=== PATIENT | female | born 1950 | race Caucasian/White ===

== ENCOUNTER → 2018-01-29 | Outpatient (CLI) | payer MEDICARE ==
[2017-10-09 11:00] VITALS: BP 104/56
[~2018-01-29] MED LIST: ACET325T9 PO; ALBU2.5V5 NEB; ALEN35TA6 PO; ALEN70TA5 PO; ALPR0.254 PO; AMOX1TAB10 PO; ASPI-630 PO; ASPI325T11 PO; ASPI325T8 PO; ATEN-57 PO; ATEN25TA PO; ATEN50TA PO; ATOR10TA PO; ATOR10TA60 PO; BUDE0.5A IH; CALC1TAB67 PO; CHLO1CAP PO; DILT180C29 PO; DIPH25CA58 PO; DOCU-109 PO; ENOX40DI SQ; ERGO500027 PO; FAMO1TAB3 PO; FERR325T72 PO; GUAI600T47 PO; Hydrocodone/Acetaminophen PO; IPRA0.2S5 IH; LACT1CAP19 PO; LEVO500T59 PO; LOPE2CAP PO; MAGN2400 PO; MELO15TA23 PO; METH-37 PO; MULT-638 PO; NICO1PAT21 TP; NYST100054 SWSW; OXYC-327 PO; PARO20TA3 PO; POTA20TA4 PO; PRED50TA PO; PROAIR HFA8.5 GM INH; PROC25SU21 RC; Pantoprazole PO; RIVA20TA2 PO; SENN-79 PO; SUCR1ORA5 PO; ZOLP5TAB5 PO; medrol dose pak
--- NOTE | 2018-01-29 11:38 | RAD ---
MRI Cervical Spine Without Contrast History: Previous surgery, chronic neck pain, left arm and shoulder pain Technique: Multiplanar, multi sequential noncontrast MR imaging was performed of the cervical spine. Comparison: March 29, 2017 Findings: There is motion degradation. Cervical vertebral body stature is unchanged. There is straightening of the cervical spine. There is negligible posterior subluxation C5 relative to C6. There is again moderate to severe degenerative disc disease at C4-C5, to lesser degree at C5-C6 minimally at C6-7. Cervical cord caliber is within normal limits without significant focal signal abnormality. There is no new significant abnormality of the cervical medullary junction. There is encephalomalacia with cortical involvement of the left occipital lobe as seen previously. C2-C3: Neural foramina and spinal canal are adequate. There is mild right facet degenerative change. C3-C4: There has been posterior decompression. There is facet degenerative change greater on the right. There is again minimal posterior bulge greater in the left lateral recess. Central canal is adequate about 10 to 11 mm. There is uncovertebral degenerative change. There is probable moderate to severe neural foramina compromise bilaterally although poorly characterized due to motion. C4-C5: There is minimal disc osteophyte complex and bulge. There has been posterior decompression. There is right greater than left facet degenerative change. Spinal canal is adequate. Left neural foramen is adequate, fairly severe narrowing of the right neural foramen due to facet and uncovertebral degenerative change. C5-C6: There has been posterior decompression. There is shallow posterior bulge/protrusion eccentric to left lateral recess as seen previously, central canal adequate about 12 mm. There is mild indentation upon the ventral thecal sac in the left lateral recess unchanged. There is uncovertebral degenerative change. There is again fairly severe narrowing of the left neural foramen, probable moderate to severe narrowing of the right neural foramen. C6-C7: There has been posterior decompression. There is again minimal posterior bulge. Spinal canal is overall adequate. There is again fairly severe narrowing of the left neural foramen in part from uncovertebral degenerative change, difficult to exclude component of bulge at the anterior margin. Right neural foramen is adequate. C7-T1: There has been posterior decompression, spinal canal and neural foramina adequate. Impression: 1. There has been multilevel posterior decompression C3-4 to C7-T1, cervical spinal canal overall adequate, mild indentation upon the ventral thecal sac as stated. 2. There is multilevel neural foramina compromise, more significant narrowing on the left at C5-6 and C6-7, on the right at C4-C5, and bilaterally at C3-C4. Facet and uncovertebral degenerative change contributes to neural foramina compromise. 3. There is degenerative disc disease greatest at C4-C5. 4. There is again encephalomalacia with cortical involvement of the left occipital lobe. Electronically signed by: Noé Geiger MD (01/29/2018 11:35 AM) [facility]
== END | disposition home or self-care (01) ==
LOC: MRI 10:15
PROVIDERS: ATTEND Family Medicine
DX: M50.321 Other cervical disc degeneration at C4-C5 level (principal); M48.02 Spinal stenosis, cervical region; M25.78 Osteophyte, vertebrae; G93.89 Other specified disorders of brain
CPT/HCPCS: 72141

== ENCOUNTER → 2018-07-24 | Outpatient (CLI) | payer MEDICARE ==
[2017-10-09 11:00] VITALS: BP 104/56
[~2018-07-24] MED LIST changes: +ALBU2.5V8 INH; -ALEN70TA5 PO; +ALEN70TA6 PO; -OXYC-327 PO; +OXYC1TAB19 PO; -PROAIR HFA8.5 GM INH; +REGADENOSON 0.4 MG/5 ML DISP.SYRIN. IV ONE; -SENN-79 PO; +SENN-80 PO
--- NOTE | 2018-07-24 09:29 | CARD ---
MR#: [id number] Date of Study: 07/24/2018 Ordering Physician: ANNA TAVERA, Referring Physician: ANNA TAVERA Tech: Rufina Weber OSVALDO APPROVED REPORT EXAM: Two-dimensional and M-mode echocardiogram with Doppler and color Doppler. Other Information Quality : Technically LimitedHR: 62bpm Rhythm : NSRTechnically limited study due to history of smoking. INDICATION Atrial Fibrillation 2D DIMENSIONS RVDd2.2 (2.9-3.5cm)Left Atrium(2D)2.4 (1.6-4.0cm) IVSd0.8 (0.7-1.1cm)Aortic Root(2D)3.0 (2.0-3.7cm) LVDd4.6 (3.9-5.9cm)LVOT Diameter1.8 (1.8-2.4cm) PWd0.8 (0.7-1.1cm)LVDs3.2 (2.5-4.0cm) FS (%) 31.2 %SV58.2 ml LVEF(%)59.1 (>50%) Aortic Valve AoV Peak [place].133.2cm/sAoV VTI28.4cm AO Peak GR.7.1mmHgLVOT Peak [place].107.5cm/s AO Mean GR.3mmHgAVA (VMAX)2.05cm2 MAXWELL (VTI)2.03ny7ZO P 1/2 Sfad043jf Mitral Valve MV E Uodjwzvu372.4cm/sMV E Peak Gr.5mmHg MV DECEL DDMR341ujSZ A Lxnhewbp03.2cm/s MV E Mean Gr.2mmHgE/A Ratio1.2 MV A Prphnrbm952hz Pulmonary Valve PV Peak Jctlaxsb78.6cm/s Tricuspid Valve TR P. Zhtlysre577hu/sRAP GJJBIXNS0uhTg TR Peak Gr.04hqIpZUUR68eoPa LEFT VENTRICLE The left ventricle is normal size. There is normal left ventricular wall thickness. The left ventricu lar systolic function is normal. The Ejection Fraction is 55-60%. There is normal LV segmental wall m otion. Transmitral Doppler flow pattern is Grade II-pseudonormal filling dynamics. RIGHT VENTRICLE The right ventricle is normal size. There is normal right ventricular wall thickness. The right ventr icular systolic function is normal. ATRIA The left atrium size is normal. The right atrium size is normal. The interatrial septum is intact wit h no evidence for an atrial septal defect or patent foramen ovale as noted on 2-D or Doppler imaging. AORTIC VALVE The aortic valve is thickened but opens well. The aortic valve is trileaflet. Doppler and Color Flow revealed mild aortic regurgitation. There is no significant aortic valvular stenosis. MITRAL VALVE The mitral valve is normal in structure and function. There is no evidence of mitral valve prolapse. There is no mitral valve stenosis. Doppler and Color-flow revealed mild mitral regurgitation. TRICUSPID VALVE The tricuspid valve is normal in structure and function. Doppler and Color Flow revealed trace tricus pid regurgitation. There is mild pulmonary hypertension. The PA pressure was estimated at 39 mmHg. Th ere is no tricuspid valve prolapse or vegetation. There is no tricuspid valve stenosis. PULMONIC VALVE The pulmonic valve is not well visualized. GREAT VESSELS The aortic root is normal in size. The ascending aorta is normal in size. The IVC is normal in size a nd collapses >50% with inspiration. PERICARDIAL EFFUSION There is no evidence of significant pericardial effusion. Critical Notification Critical Value: No <Conclusion> The left ventricular systolic function is normal. The Ejection Fraction is 55-60%. There is normal LV segmental wall motion. Mild aortic regurgitation. Mild mitral regurgitation. Trace tricuspid regurgitation. The PA pressure was estimated at 39 mmHg. There is no evidence of significant pericardial effusion. Signed by : Anna Tavera, Electronically Approved : 07/24/2018 09:29:33
--- NOTE | 2018-07-24 12:23 | RAD ---
MR#: [id number] Date of Study: 07/24/2018 Ordering Physician: ANNA GARDNER, Referring Physician: BAY CUELLAR Tech: KAVITHA Coyle, ARRT (R) (N) APPROVED REPORT Test Type: Pharmacological Stress Nurse/Tech: Venkata Ponce RN Test Indications: paroxysmal atrail Fibrillation Cardiac History: COPD, CVA Medications: See Electronic Medical Record Medical History: See Electronic Medical Record Resting ECG: SR Resting Heart Rate: 62 bpm Resting Blood Pressure: 124/54mmHg Pretest Chest Pain: None Nurse/Tech Notes Lungs CTA, S1S2 Consent: The procedure was explained to the patient in lay terms. Informed consent was witnessed. Darren eout was entered into [employer]. History and Stress Test performed by venkata Ponce RN Pharm. Details Pharmacologic stress testing was performed using 0.4mg per 5ml of regadenoson given intravenously ove r 7-10 seconds. Stress Symptoms dyspnea POST EXERCISE Reason for Termination: Infusion complete Max HR: 96 bpm Max Blood Pressure: 132/52mmHg Blood Pressure response to exercise: Normal blood pressure response during stress. Heart Rate response to exercise: Normal response Chest Pain: No. Arrhythmia: No. ST Change: No. INTERPRETATION Stress EKG Conclusion: Baseline EKG showed sinus rhythm. No ischemic changes at peak stress. No arr hythmias. Imaging Protocol IMAGE PROTOCOL: Rest Tc-99m/stress Tc-99m 1 day Rest: Stress: Viability: Radiopharm.1231 Img Date 07/24/2018 07/24/2018 Inj-Img Upyt13xig. 60min. Rest Admin Site:IV - Right HandAdministrator:RT Tatiana (R)(N) Stress Admin Site: IV - Right HandAdministrator: RT Tatiana (R)(N) STRESS DATA End Diast. Vol.54.0mlLVEDV index BSA33.0ml End Syst. Vol.10.0mlLVESV index BSA6.0ml Myocardial Mass94.0gEject. Hzfikfmy25.0% Stress Scores Regional WT1.00Summed WT4.00 Regional WM0.00Summed WM0.00 Study quality was good. Left Ventricular size was Normal at Rest and Stress. Lung uptake was . Left Ventricular ejection fraction is 79%. The rest and stress images show normal perfusion, normal contraction and thickening. LV Perf. Quant 17 Seg. SSS2.00 17 Seg. SRS4.00 17 Seg. SDS0.00 Stress Defect Extent (% LAD)0.60Rest Defect Extent (% LAD)3.10Rev. Defect Extent (% LAD)0.00 Stress Defect Extent (% LCX) 0.00Rest Defect Extent (% LCX)0.00Rev. Defect Extent (% LCX)0.00 Stress Defect Extent (% RCA)3.30Rest Defect Extent (% RCA)7.80Rev. Defect Extent (% RCA)0.00 Stress Defect Extent (% HUYEN)2.40Rest Defect Extent (% HUYEN)6.30Rev. Defect Extent (% HUYEN)0.00 Conclusion 1. Regadenoson cardioisotope stress test did not show any evidence of ischemia or infarct. 2. Normal left ventricular systolic function with ejection fraction calculated at 79%. 3. Low risk for cardiac events. Signed by : Anna Gardner, Electronically Approved : 07/24/2018 12:22:46
== END | disposition home or self-care (01) ==
LOC: ECHO 07:49
PROVIDERS: ATTEND Internal Medicine Cardiovascular Disease
DX: I08.0 Rheumatic disorders of both mitral and aortic valves (principal); I48.0 Paroxysmal atrial fibrillation; J44.9 Chronic obstructive pulmonary disease, unspecified; Z86.73 Personal history of transient ischemic attack (TIA), and cerebral infarction without residual deficits
CPT/HCPCS: 78452; 93017; 93306; 96374; A9500; J2785

== ENCOUNTER → 2018-08-28 | Outpatient (CLI) | payer MEDICARE ==
[2017-10-09 11:00] VITALS: BP 104/56
[~2018-08-28] MED LIST changes: -REGADENOSON 0.4 MG/5 ML DISP.SYRIN. IV ONE
--- NOTE | 2018-08-28 17:01 | RAD ---
Pelvis one view. HISTORY: Low back pain without sciatica, M [age] Single view was taken of the pelvis. There is vascular calcification in the left iliac artery and distal aorta. Pelvis is intact without fracture or osseous abnormality. Hips appear unremarkable. IMPRESSION: 1. Negative pelvis. Electronically signed by: Adebayo More MD (08/28/2018 4:59 PM) [facility]
== END | disposition home or self-care (01) ==
LOC: RAD 13:40
PROVIDERS: ATTEND Internal Medicine Rheumatology
DX: I70.0 Atherosclerosis of aorta (principal); I70.8 Atherosclerosis of other arteries
CPT/HCPCS: 72170

== ENCOUNTER 2019-04-15 21:13 | Inpatient (IN) | payer MEDICARE ==
[~2019-04-15] VITALS: Ht 162.6 cm; Wt 67.8 kg
[~2019-04-15 21:13] MED LIST changes: +ALEN35TA11 PO; -ALEN35TA6 PO
[2019-04-15 22:26] LABS: BASO # 0.1 x10^3/uL (0.0-0.2); BASO % 0 % (0-3); EOS % 0 % (0-3); HEMATOCRIT 36.1 % (36.0-47.0); HEMOGLOBIN 12.1 g/dL (12.0-15.5); LYMPH # 1.1 x10^3/uL (1.0-4.8); LYMPH % 8 % (24-48); MEAN CORPUSCULAR HEMOGLOBIN 32 pg (25-35); MEAN CORPUSCULAR HGB CONC 34 g/dL (31-37); MEAN CORPUSCULAR VOLUME 94 fL (79-100); MONO # 1.4 x10^3/uL (0.0-1.1); MONO % 11 % (0-9); NEUT # 10.5 x10^3/uL (1.8-7.7); NEUT % 81 % (31-73); PLATELET COUNT 308 x10^3/uL (140-400); RED BLOOD COUNT 3.85 x10^6/uL (3.50-5.40); RED CELL DISTRIBUTION WIDTH 13.5 % (11.5-14.5)
[2019-04-15 22:35] LABS: CALCIUM 8.9 mg/dL (8.5-10.1); CREATININE 0.8 mg/dL (0.6-1.0); GFR 70.9; POTASSIUM 3.9 mmol/L (3.5-5.1)
[2019-04-15 22:42] LABS: ALBUMIN 3.6 g/dL (3.4-5.0); TOTAL BILIRUBIN 0.6 mg/dL (0.2-1.0); TOTAL PROTEIN 7.3 g/dL (6.4-8.2)
[2019-04-15] MEDS ORDERED: IPRATRPIUM/ALBUTEROL 0.5/2.5MG 3 ML NEBU. NEB ONE (22:45)
[2019-04-15 22:56] LABS: INFLUENZA A PATIENT NEGATIVE (NEGATIVE); INFLUENZA B PATIENT NEGATIVE (NEGATIVE)
--- NOTE | 2019-04-15 22:58 | PHYS DOC ---
Past Medical History Past Medical History: A-Fib, COPD, Other Additional Past Medical Histor: WPW (KAMILLA TAYLOR APRN) Past Surgical History: Appendectomy, Cervical Fusion, Other Additional Past Surgical Histo: left clavicle (KAMILLA TAYLOR APRN) Additional Information: QUIT 09/2017 Alcohol Use: Occasionally Drug Use: None (KAMILLA TAYLOR APRN) Attending Signature I have participated in the care of this patient and I have reviewed and agree with all pertinent clinical information above including history, exam, and recommendations. (TEVIN HEATH MD) Adult General Chief Complaint Chief Complaint: FEVER HPI HPI Patient is a 68 year old female who presents with 3-4 days of dyspnea and dyspnea look exertion, productive cough, nasal congestion and fever. Patient was 90% on room air and was asking for oxygen she came in. Patient was placed on 1 L and she is 96% on room air. 25 respirations. 100 fever. (KAMILLA TAYLOR APRN) Review of Systems Review of Systems Constitutional: fever or chills [] Eyes: Denies change in visual acuity, redness, or eye pain [] HENT: nasal congestion or denies sore throat [] Respiratory: cough or shortness of breath [] All other systems were reviewed and found to be within normal limits, except as documented in this note. (KAMILLA TAYLOR APRN) Current Medications Current Medications Current Medications Medications (Trade) Dose Ordered Sig/Issac Start Time Stop Time Status Last Admin Dose Admin Acetaminophen (Tylenol) 1,000 mg 1X ONCE 04/15/19 23:00 04/15/19 23:01 DC 04/15/19 23:31 1,000 MG Albuterol/ Ipratropium (Duoneb) 3 ml 1X ONCE 04/15/19 22:45 04/15/19 22:46 DC 04/15/19 22:45 3 ML Ceftriaxone Sodium (Rocephin) 1 gm 1X ONCE 04/15/19 23:00 04/15/19 23:01 DC 04/15/19 23:16 1 GM Doxycycline Hyclate 100 mg/ Dextrose 100 ml @ 50 mls/hr 1X ONCE 04/15/19 23:00 04/16/19 00:59 DC 04/15/19 23:17 50 MLS/HR Methylprednisolone Sodium Succinate (SOLU-Medrol 125MG VIAL) 125 mg 1X ONCE 04/15/19 23:00 04/15/19 23:01 DC 04/15/19 23:17 125 MG (TEVIN HEATH MD) Allergies Allergies Allergies Coded Allergies Type Severity Reaction Last Updated Verified Iodine and Iodide Containing Produc Allergy Severe Shortness of Air 10/03/17 Yes iodine Allergy Severe 10/03/17 Yes (TEVIN HEATH MD) Physical Exam Physical Exam Constitutional: Well developed, well nourished, no acute distress, non-toxic appearance. [] HENT: Normocephalic, atraumatic, bilateral external ears normal, oropharynx moist, no oral exudates, nose normal. [] Eyes: PERRLA, EOMI, conjunctiva normal, no discharge. [] Neck: Normal range of motion, no tenderness, supple, no stridor. [] Cardiovascular:Heart rate regular rhythm, no murmur [] Lungs & Thorax: Bilateral breath sounds expiratory wheezing, coarse, diminished to auscultation [] Abdomen: Bowel sounds normal, soft, no tenderness, no masses, no pulsatile masses. [] Skin: Warm, dry, no erythema, no rash. [] Back: No tenderness, no CVA tenderness. [] Extremities: No tenderness, no cyanosis, no clubbing, ROM intact, no edema. [] Neurologic: Alert and oriented X 3, normal motor function, normal sensory function, no focal deficits noted. [] Psychologic: Affect normal, judgement normal, mood normal. [] (KAMILLA TAYLOR APRN) Current Patient Data Vital Signs Vital Signs Date Time Temp Pulse Resp B/P (MAP) Pulse Ox O2 Delivery O2 Flow Rate FiO2 04/15/19 22:50 94 Nasal Cannula 1.0 04/15/19 22:50 86 20 127/60 (82) 04/15/19 21:14 100.0 100.0 (TEVIN HEATH MD) Lab Values Laboratory Tests Test 04/15/19 21:45 04/15/19 22:28 White Blood Count 13.0 x10^3/uL (4.0-11.0) H Red Blood Count 3.85 x10^6/uL (3.50-5.40) Hemoglobin 12.1 g/dL (12.0-15.5) Hematocrit 36.1 % (36.0-47.0) Mean Corpuscular Volume 94 fL (79-100) Mean Corpuscular Hemoglobin 32 pg (25-35) Mean Corpuscular Hemoglobin Concent 34 g/dL (31-37) Red Cell Distribution Width 13.5 % (11.5-14.5) Platelet Count 308 x10^3/uL (140-400) Neutrophils (%) (Auto) 81 % (31-73) H Lymphocytes (%) (Auto) 8 % (24-48) L Monocytes (%) (Auto) 11 % (0-9) H Eosinophils (%) (Auto) 0 % (0-3) Basophils (%) (Auto) 0 % (0-3) Neutrophils # (Auto) 10.5 x10^3/uL (1.8-7.7) H Lymphocytes # (Auto) 1.1 x10^3/uL (1.0-4.8) Monocytes # (Auto) 1.4 x10^3/uL (0.0-1.1) H Eosinophils # (Auto) 0.0 x10^3/uL (0.0-0.7) Basophils # (Auto) 0.1 x10^3/uL (0.0-0.2) Sodium Level 128 mmol/L (136-145) L Potassium Level 3.9 mmol/L (3.5-5.1) Chloride Level 92 mmol/L (98-107) L Carbon Dioxide Level 27 mmol/L (21-32) Anion Gap 9 (6-14) Blood Urea Nitrogen 7 mg/dL (7-20) Creatinine 0.8 mg/dL (0.6-1.0) Estimated GFR (Cockcroft-Gault) 70.9 BUN/Creatinine Ratio 9 (6-20) Glucose Level 143 mg/dL (70-99) H Lactic Acid Level 1.3 mmol/L (0.4-2.0) Calcium Level 8.9 mg/dL (8.5-10.1) Total Bilirubin 0.6 mg/dL (0.2-1.0) Aspartate Amino Transferase (AST) 15 U/L (15-37) Alanine Aminotransferase (ALT) 15 U/L (14-59) Alkaline Phosphatase 46 U/L (46-116) Troponin I Quantitative < 0.017 ng/mL (0.000-0.055) Total Protein 7.3 g/dL (6.4-8.2) Albumin 3.6 g/dL (3.4-5.0) Albumin/Globulin Ratio 1.0 (1.0-1.7) Influenza Type A Antigen Negative (NEGATIVE) Influenza Type B Antigen Negative (NEGATIVE) Laboratory Tests 04/15/19 21:45 Laboratory Tests 04/15/19 21:45 (TEVIN HEATH MD) EKG EKG Sinus rhythm with AST and T abnormality, no STEMI[] Interpretation Time: [address] Heath (KAMILLA TAYLOR APRN) Radiology/Procedures Radiology/Procedures [] (KAMILLA TAYLOR APRN) Course & Med Decision Making Course & Med Decision Making Patient's lungs are coarse, diminished and expiratory wheezing throughout all lobes. Patient sister called Dr. Alves today and he had called in a Z-Kentrell to the pharmacy. The pharmacy stated that the Z-Kentrell was contraindicated with one of her medications would not fill it. The pharmacy tried to call Dr. Alves and did not get a call back. Denies pain at this time. Alert and oriented. Patient speaks in full sentences but sounds breathless. Patient is using accessory muscles. Skin pink warm and dry. Abdomen soft and nontender. No extremity swelling. Patient denies headache, dizziness, syncope, numbness or tingling, chest pain, visual changes, nausea, vomiting, diarrhea. She states at times she will have a coughing fit which will make her gag. Patient is coughing up green/yellow mucus. PERRLA. Patient has history of COPD, SVT, respiratory failure, pneumonia, GI bleed, pneumothorax. Chest x-ray read by Dr. Heath as pneumonia on the right side. I have started Rocephin and doxycycline. Patient DuoNeb breathing treatment and Solu-Medrol. Blood cultures have been ordered. Patient admitted to Dr. Noble. I have gone over this patient with Dr. Heath in the care plan. I will also consult Dr. Levine. (KAMILLA TAYLOR APRN) Dragon Disclaimer Dragon Disclaimer This electronic medical record was generated, in whole or in part, using a voice recognition dictation system. (KAMILLA TAYLOR APRN) Departure Departure Impression: Primary Impression: COPD exacerbation Additional Impression: Pneumonia Disposition: 09 ADMITTED INPATIENT Admitting Physician: SONYA (KAMILLA TAYLOR APRN) Condition: STABLE Referrals: Robbie ROJAS MD (PCP) Problem Qualifiers Additional Impression: Pneumonia Pneumonia type: due to unspecified organism Laterality: right Lung location: middle lobe of lung Qualified Codes: J18.9 - Pneumonia, unspecified organism KAMILLA TAYLOR APRN Apr 15, 2019 22:58 TEVIN HEATH MD Apr 16, 2019 02:58
[2019-04-15] MEDS ORDERED: ACETAMINOPHEN 500 MG TABLET PO ONE (23:00)
[2019-04-15] MEDS ORDERED: DOXYCYCLINE HYCLATE 100 MG in IV DEXTROSE 5% 100ML 100 ML IV ONE (23:00)
[2019-04-15] MEDS ORDERED: cefTRIAXone IV Push 1 GM VIAL. IVP ONE (23:00)
[2019-04-15] MEDS ORDERED: methylPREDNISolone SOD SUCC PF 125 MG/2 ML VIAL. IV ONE (23:00)
[2019-04-15 23:43] LABS: BASE EXCESS ABG -1 mmol/L (-3-3); HCO3 ABG 23 mmol/L (21-28); PCO2 ABG 34 mmHg (35-46); PO2 ABG 65 mmHg (65-108); SAT O2 ABG 93 % (92-99)
[2019-04-15 23:59] LABS: FIO2 ABG 24
[2019-04-16] VITALS (8 sets, daily range): BP systolic 108–146; BP diastolic 39–65
[2019-04-16] MEDS ORDERED: fentaNYL PF VIAL 100 MCG/2 ML VIAL IV PRN (00:15)
[2019-04-16] MEDS ORDERED: ONDANSETRON PF 4 MG/2 ML VIAL. IV PRN (00:15)
--- NOTE | 2019-04-16 00:48 | RAD ---
Exam: Chest one view INDICATION: Cough TECHNIQUE: Frontal view of the chest Comparisons: 10/04/2017 FINDINGS: The cardiomediastinal silhouette and pulmonary vessels are within normal limits. Patchy airspace disease lung bases bilaterally. No pleural effusion. Fixation hardware at the left clavicle is again noted. IMPRESSION: Patchy bibasilar airspace disease, may be atelectasis or infection. Electronically signed by: Zonia Cain MD (04/16/2019 12:46 AM) [facility]
[2019-04-16] MEDS ORDERED: DRON400T PO (01:20)
[2019-04-16] MEDS ORDERED: FLUT12AE PO (01:20)
[2019-04-16] MEDS ORDERED: APIX5TAB PO (01:20)
[2019-04-16] MEDS ORDERED: DILT120C99 PO (01:20)
[2019-04-16] MEDS ORDERED: PANT40TA6 PO (01:20)
[2019-04-16] MEDS ORDERED: ATEN50TA PO (01:20)
[2019-04-16] MEDS ORDERED: TRAM50TA PO (01:20)
--- NOTE | 2019-04-16 06:11 | EKG ---
[facility] [address] [place] [address] Test Date: 2019-04-15 Test Time: 23:08:12 Pat Name: JERRELL ROTH Department: Room: Gender: F [employer] Dyeing Machine Operator: : [id number] Requested By: KAMILLA TAYLOR Order Number: [id number] Reading MD: Measurements Intervals [place] Rate: 86 P: 66 MD: 144 QRS: 62 QRSD: 80 T: 83 QT: 366 QTc: 440 Interpretive Statements SINUS RHYTHM ST & T ABNORMALITY, CONSIDER HIGH LATERAL ISCHEMIA OR LEFT VENTRICULAR STRAIN ABNORMAL ECG No previous ECG available for comparison
[2019-04-16] MEDS: IPRATRPIUM/ALBUTEROL 0.5/2.5MG 3 ML NEBU. NEB SCH ×4 (06:25→20:00)
--- NOTE | 2019-04-16 09:25 | PDOC1 ---
History and Physical Date of Admission Date of Admission DATE: 04/16/19 TIME: 09:12 Identification/Chief Complaint Chief Complaint Shortness of breath Source Source: Patient History of Present Illness History of Present Illness Ms Pickett is a 68 year old female w/ PMHx Hypertension, chronic obstructive pulmonary disease, carpal tunnel syndrome, atrial fibrillation, Osteoarthritis, Fcctq-Dducqbolu-Ajwkg syndrome, and prior spontaneous pneumothorax who presents with 3-4 days of dyspnea and dyspnea on exertion, productive cough, nasal congestion and fever. Patient was 90% on room air and was asking for oxygen she came in. Patient was placed on 1 L and she is 96% on room air. 25 respirations. 100 fever. Given script for azithromycin by PCP earlier but failed outpatient treatment, came to ED. Found on CXR with patchy bibasilar airspace disease. WBC 13K, Na 128 EKG sinus with non-specific ST and T abnormalities Past Medical History Cardiovascular: AFIB, HTN, Other Pulmonary: COPD, Other CENTRAL NERVOUS SYSTEM: Carpal Tunnel Syndrome GI: No pertinent hx, Other Heme/Onc: No pertinent hx Hepatobiliary: No pertinent hx Psych: No pertinent hx Rheumatologic: No pertinent hx Infectious disease: No pertinent hx Renal/: No pertinent hx Endocrine: No pertinent hx Past Surgical History Past Surgical History Appendectomy, tonsillectomy. Cervical laminectomy, right lumpectomy, tubal ligation and polypectomy. Cardiac catheterization with ablation and repair of left clavicle fracture, VAT wedge resection of the bleb sin 2013. Past Surgical History: Appendectomy, Tonsillectomy, Other Family History Family History: Heart Disease, Hypertension Social History Smoke: 1 pack per day ALCOHOL: other Drugs: None Current Medications Current Medications Current Medications Albuterol/ Ipratropium (Duoneb) 3 ml 1X ONCE NEB Last administered on 04/15/19at 22:45; Start 04/15/19 at 22:45; Stop 04/15/19 at 22:46; Status DC Methylprednisolone Sodium Succinate (SOLU-Medrol 125MG VIAL) 125 mg 1X ONCE IV Last administered on 04/15/19at 23:17; Start 04/15/19 at 23:00; Stop 04/15/19 at 23:01; Status DC Doxycycline Hyclate 100 mg/ Dextrose 100 ml @ 50 mls/hr 1X ONCE IV Last adm inistered on 04/15/19at 23:17; Start 04/15/19 at 23:00; Stop 04/16/19 at 00:59; Status DC Ceftriaxone Sodium (Rocephin) 1 gm 1X ONCE IVP Last administered on 04/15/19at 23:16; Start 04/15/19 at 23:00; Stop 04/15/19 at 23:01; Status DC Acetaminophen (Tylenol) 1,000 mg 1X ONCE PO Last administered on 04/15/19at 23:31; Start 04/15/19 at 23:00; Stop 04/15/19 at 23:01; Status DC Ondansetron HCl (Zofran) 4 mg PRN Q8HRS PRN IV NAUSEA/VOMITING; Start 04/16/19 at 00:15; Stop 04/17/19 at 00:14 Fentanyl Citrate (Fentanyl 2ml Vial) 50 mcg PRN Q1HR PRN IV PAIN; Start 04/16/19 at 00:15; Stop 04/17/19 at 00:14 Acetaminophen (Tylenol) 650 mg PRN Q4HRS PRN PO FEVER; Start 04/16/19 at 00:15; Stop 04/17/19 at 00:14 Albuterol/ Ipratropium (Duoneb) 3 ml RTQID NEB Last administered on 04/16/19at 06:25; Start 04/16/19 at 08:00; Stop 04/17/19 at 07:59 Active Scripts Active Proair Hfa Inhaler (Albuterol Sulfate) 8.5 Gm Hfa.aer.ad 2 Puff INH PRN Q6HRS PRN 30 Days Albuterol Sulfate Neb Soln (Albuterol Sulfate) 2.5 Mg/3 Ml Vial.neb 2.5 Mg NEB PRN Q2HRS PRN 30 Days Reported Tramadol Hcl 50 Mg Tablet 50 Mg PO BID PRN Pantoprazole Sodium 40 Mg Tablet.dr 40 Mg PO DAILY Flovent 110MCG Hfa (Fluticasone Propionate) 12 Gm Aer.w.adap 2 Inh PO BID Eliquis (Apixaban) 5 Mg Tablet 5 Mg PO BID Multaq (Dronedarone Hcl) 400 Mg Tablet 400 Mg PO BID Atenolol 50 Mg Tablet 50 Mg PO DAILY Diltiazem 24HR Cd (Diltiazem Hcl) 120 Mg Cap.er.24h 120 Mg PO DAILY Tylenol (Acetaminophen) 325 Mg Tablet 325 Mg PO PRN Q6HRS PRN Allergies Allergies: Coded Allergies: Iodine and Iodide Containing Produc (Verified Allergy, Severe, Shortness of Air, 10/03/17) iodine (Verified Allergy, Severe, 10/03/17) ROS General: YES: Fatigue, Malaise; No: Chills, Night Sweats, Appetite, Other PSYCHOLOGICAL ROS: No: Anxiety, Behavioral Disorder, Concentration difficultie, Decreased libido, Depression, Disorientation, Hallucinations, Hostility, Irritablity, Memory difficulties, Mood Swings, Obsessive thoughts, Physical abuse, Sexual abuse, Sleep disturbances, Suicidal ideation, Other Eyes: No Blurry vision, No Decreased vision, No Double vision, No Dry eyes, No Excessive tearing, No Eye Pain, No Itchy Eyes, No Loss of vision, No Photophobia, No Scotomata, No Uses contacts, No Uses glasses, No Other HEENT: No: Heacaches, Visual Changes, Hearing change, Nasal congestion, Nasal discharge, Oral lesions, Sinus pain, Sore Throat, Epistaxis, Sneezing, Snoring, Tinnitus, Vertigo, Vocal changes, Other ALLERGY AND IMMUNOLOGY: No: Hives, Insect Bite Sensitivity, Itchy/Watery Eyes, Nasal Congestion, Post Nasal Drip, Seasonal Allergies, Other Hematological and Lymphatic: No: Bleeding Problems, Blood Clots, Blood Transfusions, Brusing, Night Sweats, Pallor, Swollen Lymph Nodes, Other ENDOCRINE: No: Breast Changes, Galactorrhea, Hair Pattern Changes, Hot Flashes, Malaise/lethargy, Mood Swings, Palpitations, Polydipsia/polyuria, Skin Changes, Temperature Intolerance, Unexpected Weight Changes, Other Breast: No New/Changing Breast Lumps, No Nipple changes, No Nipple discharge, No Other Respiratory: YES: Cough, Shortness of breath, SOB with excertion, Wheezing; No: Hemoptysis, Orthopnea, Pleuritic Pain, Sputum Changes, Stridor, Tachypnea, Other Cardiovascular: No Chest Pain, No Palpitations, No Orthopnea, No Paroxysmal Noc. Dyspnea, No Edema, No Lt Headedness, No Other Gastrointestinal: No Nausea, No Vomiting, No Abdominal Pain, No Diarrhea, No Constipation, No Melena, No Hematochezia, No Other Genitourinary: No Dysuria, No Frequency, No Incontinence, No Hematuria, No Retention, No Discharge, No Urgency, No Pain, No Flank Pain, No Other, No , No , No , No , No , No , No Musculoskeletal: No Gait Disturbance, No Joint Pain, No Joint Stiffness, No Joint Swelling, No Muscle Pain, No Muscular Weakness, No Pain In:, No Swelling I n:, No Other Neurological: No Behavorial Changes, No Bowel/Bladder ControlChng, No Confusion, No Dizziness, No Gait Disturbance, No Headaches, No Impaired Coord/balance, No Memory Loss, No Numbness/Tingling, No Seizures, No Speech Pro blems, No Tremors, No Visual Changes, No Weakness, No Other Skin: No Dry Skin, No Eczema, No Hair Changes, No Lumps, No Mole Changes, No Mottling, No Nail Changes, No Pruritus, No Rash, No Skin Lesion Changes, No Other, No Acne Physical Exam General: Alert, Oriented X3, Cooperative, No acute distress HEENT: Atraumatic, PERRLA, EOMI, Mucous membr. moist/pink Lungs: Other (Wheezing) Heart: S1S2, RRR, no thrills, no rubs Abdomen: Normal bowel sounds, Soft, No tenderness, No hepatosplenomegaly, No masses Rectal Exam: not examined Extremities: No clubbing, No cyanosis, No edema, Normal pulses, No tenderness/swelling Skin: No rashes, No breakdown, No significant lesion Neuro: Normal gait, Normal speech, Strength at 5/5 X4 ext, Normal tone, Sensation intact, Cranial nerves 3-12 NL, Reflexes 2+ Psych/Mental Status: Mental status NL, Mood NL Vitals Vitals Vital Signs Date Time Temp Pulse Resp B/P (MAP) Pulse Ox O2 Delivery O2 Flow Rate FiO2 04/16/19 07:00 98.3 68 20 129/39 (69) 97 Nasal Cannula 1.0 98.3 Labs Labs Laboratory Tests Test 04/15/19 21:45 04/15/19 22:28 04/15/19 23:43 04/16/19 06:50 White Blood Count 13.0 x10^3/uL (4.0-11.0) Red Blood Count 3.85 x10^6/uL (3.50-5.40) Hemoglobin 12.1 g/dL (12.0-15.5) Hematocrit 36.1 % (36.0-47.0) Mean Corpuscular Volume 94 fL (79-100) Mean Corpuscular Hemoglobin 32 pg (25-35) Mean Corpuscular Hemoglobin Concent 34 g/dL (31-37) Red Cell Distribution Width 13.5 % (11.5-14.5) Platelet Count 308 x10^3/uL (140-400) Neutrophils (%) (Auto) 81 % (31-73) Lymphocytes (%) (Auto) 8 % (24-48) Monocytes (%) (Auto) 11 % (0-9) Eosinophils (%) (Auto) 0 % (0-3) Basophils (%) (Auto) 0 % (0-3) Neutrophils # (Auto) 10.5 x10^3/uL (1.8-7.7) Lymphocytes # (Auto) 1.1 x10^3/uL (1.0-4.8) Monocytes # (Auto) 1.4 x10^3/uL (0.0-1.1) Eosinophils # (Auto) 0.0 x10^3/uL (0.0-0.7) Basophils # (Auto) 0.1 x10^3/uL (0.0-0.2) Sodium Level 128 mmol/L (136-145) Potassium Level 3.9 mmol/L (3.5-5.1) Chloride Level 92 mmol/L (98-107) Carbon Dioxide Level 27 mmol/L (21-32) Anion Gap 9 (6-14) Blood Urea Nitrogen 7 mg/dL (7-20) Creatinine 0.8 mg/dL (0.6-1.0) Estimated GFR (Cockcroft-Gault) 70.9 BUN/Creatinine Ratio 9 (6-20) Glucose Level 143 mg/dL (70-99) Lactic Acid Level 1.3 mmol/L (0.4-2.0) Calcium Level 8.9 mg/dL (8.5-10.1) Total Bilirubin 0.6 mg/dL (0.2-1.0) Aspartate Amino Transf (AST/SGOT) 15 U/L (15-37) Alanine Aminotransferase (ALT/SGPT) 15 U/L (14-59) Alkaline Phosphatase 46 U/L (46-116) Troponin I Quantitative < 0.017 ng/mL (0.000-0.055) < 0.017 ng/mL (0.000-0.055) Total Protein 7.3 g/dL (6.4-8.2) Albumin 3.6 g/dL (3.4-5.0) Albumin/Globulin Ratio 1.0 (1.0-1.7) Influenza Type A Antigen Negative (NEGATIVE) Influenza Type B Antigen Negative (NEGATIVE) O2 Saturation 93 % (92-99) Arterial Blood pH 7.44 (7.35-7.45) Arterial Blood pCO2 at Patient Temp 34 mmHg (35-46) Arterial Blood pO2 at Patient Temp 65 mmHg (65-108) Arterial Blood HCO3 23 mmol/L (21-28) Arterial Blood Base Excess -1 mmol/L (-3-3) FiO2 24 Laboratory Tests Test 04/15/19 21:45 04/15/19 22:28 04/15/19 23:43 04/16/19 06:50 White Blood Count 13.0 x10^3/uL (4.0-11.0) Red Blood Count 3.85 x10^6/uL (3.50-5.40) Hemoglobin 12.1 g/dL (12.0-15.5) Hematocrit 36.1 % (36.0-47.0) Mean Corpuscular Volume 94 fL (79-100) Mean Corpuscular Hemoglobin 32 pg (25-35) Mean Corpuscular Hemoglobin Concent 34 g/dL (31-37) Red Cell Distribution Width 13.5 % (11.5-14.5) Platelet Count 308 x10^3/uL (140-400) Neutrophils (%) (Auto) 81 % (31-73) Lymphocytes (%) (Auto) 8 % (24-48) Monocytes (%) (Auto) 11 % (0-9) Eosinophils (%) (Auto) 0 % (0-3) Basophils (%) (Auto) 0 % (0-3) Neutrophils # (Auto) 10.5 x10^3/uL (1.8-7.7) Lymphocytes # (Auto) 1.1 x10^3/uL (1.0-4.8) Monocytes # (Auto) 1.4 x10^3/uL (0.0-1.1) Eosinophils # (Auto) 0.0 x10^3/uL (0.0-0.7) Basophils # (Auto) 0.1 x10^3/uL (0.0-0.2) Sodium Level 128 mmol/L (136-145) Potassium Level 3.9 mmol/L (3.5-5.1) Chloride Level 92 mmol/L (98-107) Carbon Dioxide Level 27 mmol/L (21-32) Anion Gap 9 (6-14) Blood Urea Nitrogen 7 mg/dL (7-20) Creatinine 0.8 mg/dL (0.6-1.0) Estimated GFR (Cockcroft-Gault) 70.9 BUN/Creatinine Ratio 9 (6-20) Glucose Level 143 mg/dL (70-99) Lactic Acid Level 1.3 mmol/L (0.4-2.0) Calcium Level 8.9 mg/dL (8.5-10.1) Total Bilirubin 0.6 mg/dL (0.2-1.0) Aspartate Amino Transf (AST/SGOT) 15 U/L (15-37) Alanine Aminotransferase (ALT/SGPT) 15 U/L (14-59) Alkaline Phosphatase 46 U/L (46-116) Troponin I Quantitative < 0.017 ng/mL (0.000-0.055) < 0.017 ng/mL (0.000-0.055) Total Protein 7.3 g/dL (6.4-8.2) Albumin 3.6 g/dL (3.4-5.0) Albumin/Globulin Ratio 1.0 (1.0-1.7) Influenza Type A Antigen Negative (NEGATIVE) Influenza Type B Antigen Negative (NEGATIVE) O2 Saturation 93 % (92-99) Arterial Blood pH 7.44 (7.35-7.45) Arterial Blood pCO2 at Patient Temp 34 mmHg (35-46) Arterial Blood pO2 at Patient Temp 65 mmHg (65-108) Arterial Blood HCO3 23 mmol/L (21-28) Arterial Blood Base Excess -1 mmol/L (-3-3) FiO2 24 Images Images CXR - The cardiomediastinal silhouette and pulmonary vessels are within normal limits. Patchy airspace disease lung bases bilaterally. No pleural effusion. Fixation hardware at the left clavicle is again noted. IMPRESSION: Patchy bibasilar airspace disease, may be atelectasis or infection. VTE Prophylaxis Ordered VTE Prophylaxis Devices: No VTE Pharmacological Prophylaxi: Yes Assessment/Plan Assessment/Plan A/P: Shortness of breath - she is on multaq, will consult pulm to consider pneumonitis in differential. Will treat as acute bronchitis/copd exacerbation Chronic obstructive pulmonary disease - with acute exacerbation with diffuse bronchospasm Acute hypoxic respiratory failure secondary to basal pneumonia, likely gram- negative and in addition acute exacerbation COPD Sepsis - with leukocytosis, tachycardia, tachypnea and pneumonia vs bronchitis as inciting infection, given fluids, antibiotics Hypertension - cont meds Atrial fibrillation - currently sinus on atenolo, cardizem, multaq Osteoarthritis - stable Xkugg-Slnxuiwmu-Kpooj syndrome - stable FEN - Cardiac PPX - eliquis FULL CODE Dispo - inpatient likely 2 midnights ARTHUR SMITH MD Apr 16, 2019 09:25
[2019-04-16] MEDS ORDERED: traMADol 50 MG TABLET PO PRN (09:30)
[2019-04-16] MEDS ORDERED: ALBUTEROL SULFATE 2.5 MG/3 ML NEBU. NEB PRN (09:30)
[2019-04-16] MEDS ORDERED: DRONEDARONE HCL 400 MG TABLET PO SCH (10:00)
--- NOTE | 2019-04-16 10:07 | CONS ---
DATE OF CONSULTATION: PULMONARY CONSULTATION ATTENDING PHYSICIAN: Jaziel Freeman MD. REASON FOR CONSULTATION: Dyspnea, hypoxia, and pneumonia. HISTORY OF PRESENT ILLNESS: The patient is a 68-year-old who has chronic obstructive airway disease. She has smoked for about 53 years before quitting 2 years ago. She also has osteoarthritis, Xlijd-Jlhuogjfa-Vrxnj syndrome, atrial fibrillation, and history of prior spontaneous pneumothorax. She presented to the hospital with 3-4 day history of dyspnea. She said she had a cough with green sputum production. She had low-grade fevers at home. Her saturations were 90% on room air and she was placed on oxygen, which gradually improved her saturations up to 97% on 2 liters. She had a T-max of 100 degrees while in the hospital. Her influenza screen was negative. Her chest x-ray showed a faint hazy basal infiltrates versus atelectasis. Denies any headaches, no nausea or vomiting, no diarrhea, no dysuria. No focal weakness. No leg edema. I have been asked to see her for further evaluation. PAST MEDICAL HISTORY: History of hypertension, history of COPD, history of carpal tunnel syndrome. PAST SURGICAL HISTORY: Surgeries are extensive and they were all reviewed and as listed in the H and P. ALLERGIES: IODINE. MEDICATIONS: Reviewed as listed in the MRAD including antibiotic, Rocephin and doxycycline, and DuoNebs. REVIEW OF SYSTEMS: Twelve-point system obtained. Pertinent positives discussed in my history of present illness, otherwise noncontributory. All systems that were negative were reviewed as well. PHYSICAL EXAMINATION: VITAL SIGNS: T-max of 100, blood pressure stable, pulse ox 98% on 2 liters. HEENT: Sclerae nonicteric. NECK: Supple. LUNGS: With bilateral expiratory wheezes. CARDIOVASCULAR: With a regular rate. ABDOMEN: Soft, nontender. EXTREMITIES: With no pitting edema. LABORATORY DATA: Reviewed. ABGs with a pH of 7.44, pCO2 of 34 and a pO2 of 65 on 24% FiO2. BUN and creatinine normal. White cell count 13.0, hemoglobin 12.1, platelets 308. IMPRESSION: 1. Acute hypoxic respiratory failure secondary to basal pneumonia, likely gram-negative and in addition acute exacerbation of chronic obstructive pulmonary disease contributing to respiratory failure as well. 2. Diffuse bronchospasm secondary to acute exacerbation of chronic obstructive pulmonary disease. 3. Abnormal chest x-ray with likely basal infiltrates. Clinically, she has pneumonia. 4. Influenza screen negative. RECOMMENDATIONS: 1. Continue with present oxygen with gradual wean to keep saturation 92% and above. 2. Continue present antibiotics. 3. DuoNebs. 4. Pulmicort. 5. We will follow the clinical course and I anticipate hospitalization for 48 hours. Discussed with RN. JOANNE THORPE MD DR: ELOISA/manuela JOB#: [id number] / [id number]
[2019-04-16] MEDS: PANTOPRAZOLE 40 MG TABLET.DR. PO SCH (10:13)
[2019-04-16] MEDS: APIXABAN 5 MG TABLET. PO SCH ×2 (10:13→20:22)
[2019-04-16] MEDS: DOXYCYCLINE HYCLATE 100 MG in IV DEXTROSE 5% 100ML 100 ML IV SCH ×2 (10:14→20:22)
[2019-04-16] MEDS: cefTRIAXone IV Push 1 GM VIAL. IVP SCH (10:14)
[2019-04-16] MEDS: ATENOLOL 50 MG TABLET. PO SCH (10:14)
[2019-04-16] MEDS: BUDESONIDE 0.5 MG/2 ML NEBU. NEB SCH (20:00)
[2019-04-17 03:50] VITALS: BP_SYST 154; BP_SYST 165; BP_DIAS 52; BP_DIAS 63
[2019-04-17] MEDS: BUDESONIDE 0.5 MG/2 ML NEBU. NEB SCH ×2 (07:56→20:28)
[2019-04-17] MEDS: IPRATRPIUM/ALBUTEROL 0.5/2.5MG 3 ML NEBU. NEB SCH ×4 (07:56→20:28)
[2019-04-17 07:59] VITALS: BP 125/60
--- NOTE | 2019-04-17 08:20 | PDOC ---
PULMONARY PROGRESS NOTES Subjective Pt is on 2 liters N/C , reports increased SOB on exertion and increased wheezing not feeling better today Vitals Vital Signs Date Time Temp Pulse Resp B/P (MAP) Pulse Ox O2 Delivery O2 Flow Rate FiO2 04/17/19 08:01 98 Nasal Cannula 2.0 04/17/19 07:59 98.8 61 18 125/60 (81) 98.8 ROS: No Nausea, No Chest Pain, No Abdominal Pain ( ) General: Alert, No acute distress Lungs: Wheezing (EX in upper lobes ) Cardiovascular: S1, S2 Abdomen: Soft, Non-tender Extremities: No Edema Skin: Warm, Dry Labs Laboratory Tests Test 04/15/19 21:45 04/15/19 22:28 04/15/19 23:43 04/16/19 06:50 White Blood Count 13.0 x10^3/uL (4.0-11.0) Red Blood Count 3.85 x10^6/uL (3.50-5.40) Hemoglobin 12.1 g/dL (12.0-15.5) Hematocrit 36.1 % (36.0-47.0) Mean Corpuscular Volume 94 fL (79-100) Mean Corpuscular Hemoglobin 32 pg (25-35) Mean Corpuscular Hemoglobin Concent 34 g/dL (31-37) Red Cell Distribution Width 13.5 % (11.5-14.5) Platelet Count 308 x10^3/uL (140-400) Neutrophils (%) (Auto) 81 % (31-73) Lymphocytes (%) (Auto) 8 % (24-48) Monocytes (%) (Auto) 11 % (0-9) Eosinophils (%) (Auto) 0 % (0-3) Basophils (%) (Auto) 0 % (0-3) Neutrophils # (Auto) 10.5 x10^3/uL (1.8-7.7) Lymphocytes # (Auto) 1.1 x10^3/uL (1.0-4.8) Monocytes # (Auto) 1.4 x10^3/uL (0.0-1.1) Eosinophils # (Auto) 0.0 x10^3/uL (0.0-0.7) Basophils # (Auto) 0.1 x10^3/uL (0.0-0.2) Sodium Level 128 mmol/L (136-145) Potassium Level 3.9 mmol/L (3.5-5.1) Chloride Level 92 mmol/L (98-107) Carbon Dioxide Level 27 mmol/L (21-32) Anion Gap 9 (6-14) Blood Urea Nitrogen 7 mg/dL (7-20) Creatinine 0.8 mg/dL (0.6-1.0) Estimated GFR (Cockcroft-Gault) 70.9 BUN/Creatinine Ratio 9 (6-20) Glucose Level 143 mg/dL (70-99) Lactic Acid Level 1.3 mmol/L (0.4-2.0) Calcium Level 8.9 mg/dL (8.5-10.1) Total Bilirubin 0.6 mg/dL (0.2-1.0) Aspartate Amino Transf (AST/SGOT) 15 U/L (15-37) Alanine Aminotransferase (ALT/SGPT) 15 U/L (14-59) Alkaline Phosphatase 46 U/L (46-116) Troponin I Quantitative < 0.017 ng/mL (0.000-0.055) < 0.017 ng/mL (0.000-0.055) Total Protein 7.3 g/dL (6.4-8.2) Albumin 3.6 g/dL (3.4-5.0) Albumin/Globulin Ratio 1.0 (1.0-1.7) Influenza Type A Antigen Negative (NEGATIVE) Influenza Type B Antigen Negative (NEGATIVE) O2 Saturation 93 % (92-99) Arterial Blood pH 7.44 (7.35-7.45) Arterial Blood pCO2 at Patient Temp 34 mmHg (35-46) Arterial Blood pO2 at Patient Temp 65 mmHg (65-108) Arterial Blood HCO3 23 mmol/L (21-28) Arterial Blood Base Excess -1 mmol/L (-3-3) FiO2 24 Procalcitonin < 0.10 ng/mL (0.00-0.10) Medications Active Scripts Medications Dose Route/Sig Max Daily Dose Days Date Category Tramadol Hcl 50 Mg Tablet 50 Mg PO BID PRN 04/16/19 Reported Pantoprazole Sodium 40 Mg Tablet.dr 40 Mg PO DAILY 04/16/19 Reported Flovent 110MCG Hfa (Fluticasone Propionate) 12 Gm Aer.w.adap 2 Inh PO BID 04/16/19 Reported Eliquis (Apixaban) 5 Mg Tablet 5 Mg PO BID 04/16/19 Reported Multaq (Dronedarone Hcl) 400 Mg Tablet 400 Mg PO BID 04/16/19 Reported Atenolol 50 Mg Tablet 50 Mg PO DAILY 04/16/19 Reported Diltiazem 24HR Cd (Diltiazem Hcl) 120 Mg Cap.er.24h 120 Mg PO DAILY 04/16/19 Reported Proair Hfa Inhaler (Albuterol Sulfate) 8.5 Gm Hfa.aer.ad 2 Puff INH PRN Q6HRS PRN 30 10/09/17 Rx Albuterol Sulfate Neb Soln (Albuterol Sulfate) 2.5 Mg/3 Ml Vial.neb 2.5 Mg NEB PRN Q2HRS PRN 30 04/19/17 Rx Tylenol (Acetaminophen) 325 Mg Tablet 325 Mg PO PRN Q6HRS PRN 04/11/17 Reported Impression . IMPRESSION: 1. Acute hypoxic respiratory failure secondary to basal pneumonia, likely gram-negative and in addition acute exacerbation of chronic obstructive pulmonary disease contributing to respiratory failure as well. 2. Diffuse bronchospasm secondary to acute exacerbation of chronic obstructive pulmonary disease. 3. Abnormal chest x-ray with likely basal infiltrates. Clinically, she has pneumonia. 4. Influenza screen negative. Plan . RECOMMENDATIONS: Continue with present oxygen with gradual wean to keep saturation 92% and above. Continue present antibiotics: Rocephin/doxy DuoNebs, change to Q4 and PRN Cont. Pulmicort will ad IV steroids D/W JOANNE HA MD Apr 17, 2019 08:20
[2019-04-17] MEDS: DOXYCYCLINE HYCLATE 100 MG in IV DEXTROSE 5% 100ML 100 ML IV SCH ×2 (08:32→20:01)
[2019-04-17] MEDS: PANTOPRAZOLE 40 MG TABLET.DR. PO SCH (08:32)
[2019-04-17] MEDS: ATENOLOL 50 MG TABLET. PO SCH (08:33)
[2019-04-17] MEDS: APIXABAN 5 MG TABLET. PO SCH ×2 (08:33→20:02)
--- NOTE | 2019-04-17 08:45 | PDOC ---
PROGRESS NOTES Chief Complaint Chief Complaint A/P: Shortness of breath - she is on multaq, will consult pulm to consider pneumonitis in differential. Will treat as acute bronchitis/copd exacerbation Chronic obstructive pulmonary disease - with acute exacerbation with diffuse bronchospasm Acute hypoxic respiratory failure secondary to basal pneumonia, likely gram- negative and in addition acute exacerbation COPD Sepsis - with leukocytosis, tachycardia, tachypnea and pneumonia vs bronchitis as inciting infection, given fluids, antibiotics Hypertension - cont meds Atrial fibrillation - currently sinus on atenolo, cardizem, multaq Osteoarthritis - stable Ejznb-Sqadvqmqf-Rrbdw syndrome - stable FEN - Cardiac PPX - eliquis FULL CODE Dispo - inpatient likely 2 midnights History of Present Illness History of Present Illness Ms Picektt is a 68 year old female w/ PMHx Hypertension, chronic obstructive pulmonary disease, carpal tunnel syndrome, atrial fibrillation, Osteoarthritis, Qhcuw-Ncjwegdmm-Uzhdl syndrome, and prior spontaneous pneumothorax who presents with 3-4 days of dyspnea and dyspnea on exertion, productive cough, nasal congestion and fever. Patient was 90% on room air and was asking for oxygen she came in. Patient was placed on 1 L and she is 96% on room air. 25 respirations. 100 fever. Given script for azithromycin by PCP earlier but failed outpatient treatment, came to ED. Found on CXR with patchy bibasilar airspace disease. WBC 13K, Na 128 EKG sinus with non-specific ST and T abnormalities Feeling short of breath, still feels awful today. Barely out of bed. No CP. Weak. Vitals Vitals Vital Signs Date Time Temp Pulse Resp B/P (MAP) Pulse Ox O2 Delivery O2 Flow Rate FiO2 04/17/19 08:33 61 125/60 04/17/19 08:01 98 Nasal Cannula 2.0 04/17/19 07:59 98.8 18 98.8 Physical Exam General: Alert, Oriented X3, Cooperative, No acute distress Lungs: Other Abdomen: Normal bowel sounds, Soft, No tenderness, No hepatosplenomegaly, No masses Extremities: No clubbing, No cyanosis, No edema, Normal pulses, No tenderness/swelling Skin: No rashes, No breakdown, No significant lesion Comment Review of Relevant I have reviewed the following items henry (where applicable) has been applied. Labs Laboratory Tests Test 04/15/19 21:45 04/15/19 22:28 04/15/19 23:43 04/16/19 06:50 White Blood Count 13.0 x10^3/uL (4.0-11.0) Red Blood Count 3.85 x10^6/uL (3.50-5.40) Hemoglobin 12.1 g/dL (12.0-15.5) Hematocrit 36.1 % (36.0-47.0) Mean Corpuscular Volume 94 fL (79-100) Mean Corpuscular Hemoglobin 32 pg (25-35) Mean Corpuscular Hemoglobin Concent 34 g/dL (31-37) Red Cell Distribution Width 13.5 % (11.5-14.5) Platelet Count 308 x10^3/uL (140-400) Neutrophils (%) (Auto) 81 % (31-73) Lymphocytes (%) (Auto) 8 % (24-48) Monocytes (%) (Auto) 11 % (0-9) Eosinophils (%) (Auto) 0 % (0-3) Basophils (%) (Auto) 0 % (0-3) Neutrophils # (Auto) 10.5 x10^3/uL (1.8-7.7) Lymphocytes # (Auto) 1.1 x10^3/uL (1.0-4.8) Monocytes # (Auto) 1.4 x10^3/uL (0.0-1.1) Eosinophils # (Auto) 0.0 x10^3/uL (0.0-0.7) Basophils # (Auto) 0.1 x10^3/uL (0.0-0.2) Sodium Level 128 mmol/L (136-145) Potassium Level 3.9 mmol/L (3.5-5.1) Chloride Level 92 mmol/L (98-107) Carbon Dioxide Level 27 mmol/L (21-32) Anion Gap 9 (6-14) Blood Urea Nitrogen 7 mg/dL (7-20) Creatinine 0.8 mg/dL (0.6-1.0) Estimated GFR (Cockcroft-Gault) 70.9 BUN/Creatinine Ratio 9 (6-20) Glucose Level 143 mg/dL (70-99) Lactic Acid Level 1.3 mmol/L (0.4-2.0) Calcium Level 8.9 mg/dL (8.5-10.1) Total Bilirubin 0.6 mg/dL (0.2-1.0) Aspartate Amino Transf (AST/SGOT) 15 U/L (15-37) Alanine Aminotransferase (ALT/SGPT) 15 U/L (14-59) Alkaline Phosphatase 46 U/L (46-116) Troponin I Quantitative < 0.017 ng/mL (0.000-0.055) < 0.017 ng/mL (0.000-0.055) Total Protein 7.3 g/dL (6.4-8.2) Albumin 3.6 g/dL (3.4-5.0) Albumin/Globulin Ratio 1.0 (1.0-1.7) Influenza Type A Antigen Negative (NEGATIVE) Influenza Type B Antigen Negative (NEGATIVE) O2 Saturation 93 % (92-99) Arterial Blood pH 7.44 (7.35-7.45) Arterial Blood pCO2 at Patient Temp 34 mmHg (35-46) Arterial Blood pO2 at Patient Temp 65 mmHg (65-108) Arterial Blood HCO3 23 mmol/L (21-28) Arterial Blood Base Excess -1 mmol/L (-3-3) FiO2 24 Procalcitonin < 0.10 ng/mL (0.00-0.10) Microbiology 04/15/19 Blood Culture - Preliminary, Resulted NO GROWTH AFTER 1 DAY Medications Current Medications Albuterol/ Ipratropium (Duoneb) 3 ml 1X ONCE NEB Last administered on 04/15/19at 22:45; Start 04/15/19 at 22:45; Stop 04/15/19 at 22:46; Status DC Methylprednisolone Sodium Succinate (SOLU-Medrol 125MG VIAL) 125 mg 1X ONCE IV Last administered on 04/15/19at 23:17; Start 04/15/19 at 23:00; Stop 04/15/19 at 23:01; Status DC Doxycycline Hyclate 100 mg/ Dextrose 100 ml @ 50 mls/hr 1X ONCE IV Last administered on 04/15/19at 23:17; Start 04/15/19 at 23:00; Stop 04/16/19 at 00:59; Status DC Ceftriaxone Sodium (Rocephin) 1 gm 1X ONCE IVP Last administered on 04/15/19at 23:16; Start 04/15/19 at 23:00; Stop 04/15/19 at 23:01; Status DC Acetaminophen (Tylenol) 1,000 mg 1X ONCE PO Last administered on 04/15/19at 23:31; Start 04/15/19 at 23:00; Stop 04/15/19 at 23:01; Status DC Ondansetron HCl (Zofran) 4 mg PRN Q8HRS PRN IV NAUSEA/VOMITING; Start 04/16/19 at 00:15 Fentanyl Citrate (Fentanyl 2ml Vial) 50 mcg PRN Q1HR PRN IV PAIN; Start 04/16/19 at 00:15; Stop 04/17/19 at 00:14; Status DC Acetaminophen (Tylenol) 650 mg PRN Q4HRS PRN PO FEVER; Start 04/16/19 at 00:15 Albuterol/ Ipratropium (Duoneb) 3 ml RTQID NEB Last administered on 04/17/19at 07:56; Start 04/16/19 at 08:00 Doxycycline Hyclate 100 mg/ Dextrose 100 ml @ 50 mls/hr Q12HR IV Last administered on 04/17/19at 08:32; Start 04/16/19 at 09:30 Ceftriaxone Sodium (Rocephin) 1 gm Q24H IVP Last administered on 04/16/19at 10:14; Start 04/16/19 at 10:00 Albuterol Sulfate (Ventolin Neb Soln) 2.5 mg PRN Q2HRS PRN NEB SHORTNESS OF BREATH; Start 04/16/19 at 09:30 Apixaban (Eliquis) 5 mg BID PO Last administered on 04/17/19at 08:33; Start 04/16/19 at 10:00 Atenolol (Tenormin) 50 mg DAILY PO Last administered on 04/17/19at 08:33; Start 04/16/19 at 10:00 Diltiazem HCl (Cardizem 24hr Cd) 120 mg DAILY PO Last administered on 04/17/19at 08:33; Start 04/16/19 at 10:00 Dronedarone (Multaq) 400 mg BID PO Last administered on 04/16/19at 10:13; Start 04/16/19 at 10:00; Stop 04/16/19 at 12:43; Status DC Pantoprazole Sodium (Protonix) 40 mg DAILYAC PO Last administered on 12/28/19at 08:32; Start 04/16/19 at 10:00 Tramadol HCl (Ultram) 50 mg BID PRN PO PAIN; Start 04/16/19 at 09:30 Budesonide (Pulmicort) 0.5 mg RTBID NEB Last administered on 04/17/19at 07:56; Start 04/16/19 at 20:00 Active Scripts Active Proair Hfa Inhaler (Albuterol Sulfate) 8.5 Gm Hfa.aer.ad 2 Puff INH PRN Q6HRS PRN 30 Days Albuterol Sulfate Neb Soln (Albuterol Sulfate) 2.5 Mg/3 Ml Vial.neb 2.5 Mg NEB PRN Q2HRS PRN 30 Days Reported Tramadol Hcl 50 Mg Tablet 50 Mg PO BID PRN Pantoprazole Sodium 40 Mg Tablet.dr 40 Mg PO DAILY Flovent 110MCG Hfa (Fluticasone Propionate) 12 Gm Aer.w.adap 2 Inh PO BID Eliquis (Apixaban) 5 Mg Tablet 5 Mg PO BID Multaq (Dronedarone Hcl) 400 Mg Tablet 400 Mg PO BID Atenolol 50 Mg Tablet 50 Mg PO DAILY Diltiazem 24HR Cd (Diltiazem Hcl) 120 Mg Cap.er.24h 120 Mg PO DAILY Tylenol (Acetaminophen) 325 Mg Tablet 325 Mg PO PRN Q6HRS PRN Vitals/I & O Vital Sign - Last 24 Hours 04/16/19 04/16/19 04/16/19 04/16/19 10:13 10:13 10:14 10:48 Pulse 68 68 68 B/P (MAP) 129/39 129/39 129/39 O2 Delivery Nasal Cannula O2 Flow Rate 2.0 04/16/19 04/16/19 04/16/19 04/16/19 11:14 14:56 15:00 15:09 Temp 98.8 98.2 98.8 98.2 Pulse 72 72 Resp 20 18 B/P (MAP) 140/54 (82) () 123/43 (69) Pulse Ox 94 94 O2 Delivery Nasal Cannula Nasal Cannula Nasal Cannula O2 Flow Rate 1.0 1.0 2.0 04/16/19 04/16/19 04/16/19 04/16/19 19:00 19:43 20:38 20:39 Temp 98.3 98.3 Pulse 69 Resp 18 B/P (MAP) 118/43 (68) Pulse Ox 95 98 98 O2 Delivery Nasal Cannula Nasal Cannula Nasal Cannula Nasal Cannula O2 Flow Rate 1.0 2.0 2.0 2.0 04/16/19 04/17/19 04/17/19 04/17/19 23:35 03:50 07:59 08:00 Temp 98.8 98.0 98.8 98.8 98.0 98.8 Pulse 67 67 61 Resp 18 18 18 B/P (MAP) 134/47 (76) 154/52 (86) 125/60 (81) Pulse Ox 96 98 94 98 O2 Delivery Nasal Cannula Nasal Cannula Nasal Cannula Nasal Cannula O2 Flow Rate 1.0 1.0 1.0 2.0 04/17/19 04/17/19 04/17/19 08:01 08:33 08:33 Pulse 61 61 B/P (MAP) 125/60 125/60 Pulse Ox 98 O2 Delivery Nasal Cannula O2 Flow Rate 2.0 Intake and Output0 04/16/19 04/16/19 04/17/19 15:00 23:00 07:00 Intake Total 400 ml 200 ml 480 ml Balance 400 ml 200 ml 480 ml ARTHUR SMITH MD Apr 17, 2019 08:45
[2019-04-17] MEDS: cefTRIAXone IV Push 1 GM VIAL. IVP SCH (09:31)
[2019-04-17] MEDS: methylPREDNISolone SOD SUCC PF 40 MG/ML VIAL. IV SCH ×3 (09:32→20:02)
[2019-04-17 11:00] VITALS: BP 116/53
[2019-04-17] MEDS: ANTI-COAG MONITOR BY PHARMACY. MC PRN (13:16)
[2019-04-17 15:18] VITALS: BP 98/65
[2019-04-17 19:05] VITALS: BP 134/55
[2019-04-17] MEDS: LACTOBACILLUS RHAMNOSUS GG 1 CAPSULE. PO SCH (20:02)
[2019-04-17 23:50] VITALS: BP 139/60
[2019-04-18] MEDS: IPRATRPIUM/ALBUTEROL 0.5/2.5MG 3 ML NEBU. NEB SCH ×7 (00:31→21:48)
[2019-04-18] MEDS: methylPREDNISolone SOD SUCC PF 40 MG/ML VIAL. IV SCH ×3 (06:12→20:37)
[2019-04-18 07:00] VITALS: BP 131/55
[2019-04-18] MEDS: BUDESONIDE 0.5 MG/2 ML NEBU. NEB SCH ×2 (07:00→18:18)
[2019-04-18] MEDS: PANTOPRAZOLE 40 MG TABLET.DR. PO SCH (07:42)
[2019-04-18] MEDS: LACTOBACILLUS RHAMNOSUS GG 1 CAPSULE. PO SCH ×2 (09:01→20:38)
[2019-04-18] MEDS: APIXABAN 5 MG TABLET. PO SCH ×2 (09:01→20:38)
[2019-04-18] MEDS: ATENOLOL 50 MG TABLET. PO SCH (09:01)
[2019-04-18] MEDS: DOXYCYCLINE HYCLATE 100 MG in IV DEXTROSE 5% 100ML 100 ML IV SCH ×2 (09:02→20:39)
--- NOTE | 2019-04-18 09:09 | PDOC ---
PROGRESS NOTES Chief Complaint Chief Complaint A/P: Shortness of breath - she is on multaq, will consult pulm to consider pneumonitis in differential. Will treat as acute bronchitis/copd exacerbation Chronic obstructive pulmonary disease - with acute exacerbation with diffuse bronchospasm Acute hypoxic respiratory failure secondary to basal pneumonia, likely gram- negative and in addition acute exacerbation COPD Sepsis - with leukocytosis, tachycardia, tachypnea and pneumonia vs bronchitis as inciting infection, given fluids, antibiotics Hypertension - cont meds Atrial fibrillation - currently sinus on atenolo, cardizem, multaq Osteoarthritis - stable Qpoar-Pvkybjaus-Bfqej syndrome - stable Sore throat - will treat thrush Hyperglycemia - could be steroid related, will check a1c FEN - Cardiac PPX - eliquis FULL CODE Dispo - inpatient likely 2 midnights History of Present Illness History of Present Illness Ms Pickett is a 68 year old female w/ PMHx Hypertension, chronic obstructive pulmonary disease, carpal tunnel syndrome, atrial fibrillation, Osteoarthritis, Qrwxu-Sbppnnbwo-Kupix syndrome, and prior spontaneous pneumothorax who presents with 3-4 days of dyspnea and dyspnea on exertion, productive cough, nasal congestion and fever. Patient was 90% on room air and was asking for oxygen she came in. Patient was placed on 1 L and she is 96% on room air. 25 respirations. 100 fever. Given script for azithromycin by PCP earlier but failed outpatient treatment, came to ED. Found on CXR with patchy bibasilar airspace disease. WBC 13K, Na 128 EKG sinus with non-specific ST and T abnormalities 04/17: Feeling short of breath, still feels awful today. Barely out of bed. No CP. Weak. Overnight developed sore throat. Now on 1 L, wheezing a bit improved. Still feeling weak. Vitals Vitals Vital Signs Date Time Temp Pulse Resp B/P (MAP) Pulse Ox O2 Delivery O2 Flow Rate FiO2 04/18/19 09:02 78 131/55 04/18/19 07:01 95 Nasal Cannula 2.0 04/17/19 23:50 97.9 18 97.9 Physical Exam General: Alert, Oriented X3, Cooperative, No acute distress Lungs: Wheezing (EX in upper lobes ) Abdomen: Normal bowel sounds, Soft, No tenderness, No hepatosplenomegaly, No masses Extremities: No clubbing, No cyanosis, No edema, Normal pulses, No tenderness/swelling Skin: No rashes, No breakdown, No significant lesion Comment Review of Relevant I have reviewed the following items henry (where applicable) has been applied. Labs Microbiology 04/15/19 Blood Culture - Preliminary, Resulted NO GROWTH AFTER 2 DAYS Medications Current Medications Albuterol/ Ipratropium (Duoneb) 3 ml 1X ONCE NEB Last administered on 04/15/19at 22:45; Start 04/15/19 at 22:45; Stop 04/15/19 at 22:46; Status DC Methylprednisolone Sodium Succinate (SOLU-Medrol 125MG VIAL) 125 mg 1X ONCE IV Last administered on 04/15/19at 23:17; Start 04/15/19 at 23:00; Stop 04/15/19 at 23:01; Status DC Doxycycline Hyclate 100 mg/ Dextrose 100 ml @ 50 mls/hr 1X ONCE IV Last administered on 04/15/19at 23:17; Start 04/15/19 at 23:00; Stop 04/16/19 at 00:59; Status DC Ceftriaxone Sodium (Rocephin) 1 gm 1X ONCE IVP Last administered on 04/15/19at 23:16; Start 04/15/19 at 23:00; Stop 04/15/19 at 23:01; Status DC Acetaminophen (Tylenol) 1,000 mg 1X ONCE PO Last administered on 04/15/19at 23:31; Start 04/15/19 at 23:00; Stop 04/15/19 at 23:01; Status DC Ondansetron HCl (Zofran) 4 mg PRN Q8HRS PRN IV NAUSEA/VOMITING; Start 04/16/19 at 00:15 Fentanyl Citrate (Fentanyl 2ml Vial) 50 mcg PRN Q1HR PRN IV PAIN; Start 04/16/19 at 00:15; Stop 04/17/19 at 00:14; Status DC Acetaminophen (Tylenol) 650 mg PRN Q4HRS PRN PO FEVER; Start 04/16/19 at 00:15 Albuterol/ Ipratropium (Duoneb) 3 ml RTQID NEB Last administered on 04/17/19at 07:56; Start 04/16/19 at 08:00; Stop 04/17/19 at 09:08; Status DC Doxycycline Hyclate 100 mg/ Dextrose 100 ml @ 50 mls/hr Q12HR IV Last administered on 04/18/19 09:02; Start 04/16/19 at 09:30 Ceftriaxone Sodium (Rocephin) 1 gm Q24H IVP Last administered on 04/17/19 09:31; Start 04/16/19 at 10:00 Albuterol Sulfate (Ventolin Neb Soln) 2.5 mg PRN Q2HRS PRN NEB SHORTNESS OF BREATH; Start 04/16/19 at 09:30 Apixaban (Eliquis) 5 mg BID PO Last administered on 04/18/19 09:01; Start 04/16/19 at 10:00 Atenolol (Tenormin) 50 mg DAILY PO Last administered on 04/18/19 09:01; Start 04/16/19 at 10:00 Diltiazem HCl (Cardizem 24hr Cd) 120 mg DAILY PO Last administered on 04/18/19 09:02; Start 04/16/19 at 10:00 Dronedarone (Multaq) 400 mg BID PO Last administered on 04/16/19 10:13; Start 04/16/19 at 10:00; Stop 04/16/19 at 12:43; Status DC Pantoprazole Sodium (Protonix) 40 mg DAILYAC PO Last administered on 04/18/19 07:42; Start 04/16/19 at 10:00 Tramadol HCl (Ultram) 50 mg BID PRN PO PAIN; Start 04/16/19 at 09:30 Budesonide (Pulmicort) 0.5 mg RTBID NEB Last administered on 04/18/19 07:00; Start 04/16/19 at 20:00 Albuterol/ Ipratropium (Duoneb) 3 ml Q4HRS NEB Last administered on 04/18/19 07:00; Start 04/17/19 at 12:00 Methylprednisolone Sodium Succinate (SOLU-Medrol 40MG VIAL) 40 mg Q8HRS IV Last administered on 04/18/19 06:12; Start 04/17/19 at 09:30 Info (Anti-Coagulation Monitoring By Pharmacy) 1 each PRN DAILY PRN MC SEE COMMENTS Last administered on 04/17/19 13:16; Start 04/17/19 at 13:15 Lactobacillus Rhamnosus (Culturelle) 1 cap BID PO Last administered on 12/29/19at 09:01; Start 04/17/19 at 21:00 Active Scripts Active Proair Hfa Inhaler (Albuterol Sulfate) 8.5 Gm Hfa.aer.ad 2 Puff INH PRN Q6HRS PRN 30 Days Albuterol Sulfate Neb Soln (Albuterol Sulfate) 2.5 Mg/3 Ml Vial.neb 2.5 Mg NEB PRN Q2HRS PRN 30 Days Reported Tramadol Hcl 50 Mg Tablet 50 Mg PO BID PRN Pantoprazole Sodium 40 Mg Tablet.dr 40 Mg PO DAILY Flovent 110MCG Hfa (Fluticasone Propionate) 12 Gm Aer.w.adap 2 Inh PO BID Eliquis (Apixaban) 5 Mg Tablet 5 Mg PO BID Multaq (Dronedarone Hcl) 400 Mg Tablet 400 Mg PO BID Atenolol 50 Mg Tablet 50 Mg PO DAILY Diltiazem 24HR Cd (Diltiazem Hcl) 120 Mg Cap.er.24h 120 Mg PO DAILY Tylenol (Acetaminophen) 325 Mg Tablet 325 Mg PO PRN Q6HRS PRN Vitals/I & O Vital Sign - Last 24 Hours 04/17/19 04/17/19 04/17/19 04/17/19 11:00 13:34 14:59 15:18 Temp 98.7 98.5 98.7 98.5 Pulse 62 66 Resp 20 18 B/P (MAP) 116/53 (74) 98/65 (76) Pulse Ox 96 100 97 96 O2 Delivery Nasal Cannula Nasal Cannula Nasal Cannula Nasal Cannula O2 Flow Rate 1.0 2.0 2.0 1.0 04/17/19 04/17/19 04/17/19 04/17/19 19:05 20:00 20:30 23:50 Temp 98.6 97.9 98.6 97.9 Pulse 71 75 Resp 18 18 B/P (MAP) 134/55 (81) 139/60 (86) Pulse Ox 93 95 97 O2 Delivery Nasal Cannula Nasal Cannula Nasal Cannula Nasal Cannula O2 Flow Rate 1.0 2.0 1.0 1.0 04/18/19 04/18/19 04/18/19 04/18/19 00:31 03:23 07:01 09:01 Pulse 78 B/P (MAP) 131/55 Pulse Ox 95 O2 Delivery Nasal Cannula Nasal Cannula Nasal Cannula O2 Flow Rate 1.0 2.0 2.0 04/18/19 09:02 Pulse 78 B/P (MAP) 131/55 Intake and Output 04/17/19 04/17/19 04/18/19 15:00 23:00 07:00 Intake Total 250 ml 650 ml Balance 250 ml 650 ml ARTHUR SMITH MD Apr 18, 2019 09:09
--- NOTE | 2019-04-18 09:13 | PDOC ---
PULMONARY PROGRESS NOTES Subjective Pt is on 1-2liters N/C , reports decreased wheezing. Pt. denies SOB today and denies increased cough Feeling better today Vitals Vital Signs Date Time Temp Pulse Resp B/P (MAP) Pulse Ox O2 Delivery O2 Flow Rate FiO2 04/18/19 09:02 78 131/55 04/18/19 07:01 95 Nasal Cannula 2.0 04/17/19 23:50 97.9 18 97.9 ROS: No Nausea, No Chest Pain, No Abdominal Pain ( ) General: Alert, No acute distress Lungs: Wheezing (EX in upper lobes ) Cardiovascular: S1, S2 Abdomen: Soft, Non-tender Extremities: No Edema Skin: Warm, Dry Medications Active Scripts Medications Dose Route/Sig Max Daily Dose Days Date Category Tramadol Hcl 50 Mg Tablet 50 Mg PO BID PRN 04/16/19 Reported Pantoprazole Sodium 40 Mg Tablet.dr 40 Mg PO DAILY 04/16/19 Reported Flovent 110MCG Hfa (Fluticasone Propionate) 12 Gm Aer.w.adap 2 Inh PO BID 04/16/19 Reported Eliquis (Apixaban) 5 Mg Tablet 5 Mg PO BID 04/16/19 Reported Multaq (Dronedarone Hcl) 400 Mg Tablet 400 Mg PO BID 04/16/19 Reported Atenolol 50 Mg Tablet 50 Mg PO DAILY 04/16/19 Reported Diltiazem 24HR Cd (Diltiazem Hcl) 120 Mg Cap.er.24h 120 Mg PO DAILY 04/16/19 Reported Proair Hfa Inhaler (Albuterol Sulfate) 8.5 Gm Hfa.aer.ad 2 Puff INH PRN Q6HRS PRN 30 10/09/17 Rx Albuterol Sulfate Neb Soln (Albuterol Sulfate) 2.5 Mg/3 Ml Vial.neb 2.5 Mg NEB PRN Q2HRS PRN 30 04/19/17 Rx Tylenol (Acetaminophen) 325 Mg Tablet 325 Mg PO PRN Q6HRS PRN 04/11/17 Reported Impression . IMPRESSION: 1. Acute hypoxic respiratory failure secondary to basal pneumonia, likely gram-negative and in addition acute exacerbation of chronic obstructive pulmonary disease contributing to respiratory failure as well. 2. Diffuse bronchospasm secondary to acute exacerbation of chronic obstructive pulmonary disease. 3. Abnormal chest x-ray with likely basal infiltrates. Clinically, she has pneumonia. 4. Influenza screen negative. Plan . RECOMMENDATIONS: Continue with present oxygen with gradual wean to keep saturation 92% and above. Continue present antibiotics: Rocephin/doxy DuoNebs, change to Q4 and PRN Cont. Pulmicort cont. IV steroids D/W JOANNE HA MD Apr 18, 2019 09:13
[2019-04-18 10:20] LABS: BASO % 0 % (0-3); EOS % 0 % (0-3); HEMATOCRIT 34.1 % (36.0-47.0); HEMOGLOBIN 11.4 g/dL (12.0-15.5); LYMPH # 0.6 x10^3/uL (1.0-4.8); LYMPH % 5 % (24-48); MEAN CORPUSCULAR HEMOGLOBIN 31 pg (25-35); MEAN CORPUSCULAR HGB CONC 33 g/dL (31-37); MEAN CORPUSCULAR VOLUME 94 fL (79-100); MONO # 0.4 x10^3/uL (0.0-1.1); MONO % 3 % (0-9); NEUT # 11.8 x10^3/uL (1.8-7.7); NEUT % 92 % (31-73); PLATELET COUNT 352 x10^3/uL (140-400); RED BLOOD COUNT 3.63 x10^6/uL (3.50-5.40); RED CELL DISTRIBUTION WIDTH 13.7 % (11.5-14.5); WHITE BLOOD COUNT 12.8 x10^3/uL (4.0-11.0)
[2019-04-18 10:32] LABS: CALCIUM 8.8 mg/dL (8.5-10.1); CREATININE 0.9 mg/dL (0.6-1.0); GFR 61.9; POTASSIUM 3.6 mmol/L (3.5-5.1)
[2019-04-18 11:00] VITALS: BP 126/51
[2019-04-18] MEDS: cefTRIAXone IV Push 1 GM VIAL. IVP SCH (11:08)
[2019-04-18] MEDS: ANTI-COAG MONITOR BY PHARMACY. MC PRN (11:09)
[2019-04-18 11:17] LABS: % BANDS 6 % (0-9); % LYMPHS 5 % (24-48)
[2019-04-18 11:18] LABS: % MONOS 2 % (0-10); % SEGS 87 % (35-66); PLT ESTIMATE ADEQUATE (ADEQUATE)
[2019-04-18] MEDS: NYSTATIN 100,000 UNITS/ML 5 ML ORAL.SUSP. SWSW SCH ×3 (13:14→20:38)
[2019-04-18 15:00] VITALS: BP 128/44
[2019-04-18] MEDS: ACETAMINOPHEN 325 MG TABLET. PO PRN (16:50)
[2019-04-18] MEDS ORDERED: BENZOCAINE/MENTHOL LOZENGE. PO PRN (18:00)
[2019-04-18] MEDS: guaiFENesin ORAL 200 MG/10 ML LIQUID. PO PRN (18:13)
[2019-04-18 19:05] VITALS: BP_SYST 119; BP_SYST 46; BP_DIAS 46
[2019-04-18] MEDS: BENZONATATE 100 MG CAPSULE. PO SCH (20:38)
[2019-04-18 23:45] VITALS: BP 137/62
[2019-04-19] MEDS: diphenhydrAMINE HCL 25 MG CAPSULE PO PRN ×2 (00:17→22:13)
[2019-04-19] MEDS: IPRATRPIUM/ALBUTEROL 0.5/2.5MG 3 ML NEBU. NEB SCH ×6 (04:00→23:44)
[2019-04-19] MEDS: methylPREDNISolone SOD SUCC PF 40 MG/ML VIAL. IV SCH ×3 (06:00→22:13)
[2019-04-19] MEDS: BUDESONIDE 0.5 MG/2 ML NEBU. NEB SCH ×2 (06:56→18:12)
[2019-04-19 07:00] VITALS: BP 140/49
--- NOTE | 2019-04-19 08:23 | PDOC ---
PROGRESS NOTES Chief Complaint Chief Complaint A/P: Shortness of breath - she is on multaq, will consult pulm to consider pneumonitis in differential. Will treat as acute bronchitis/copd exacerbation Chronic obstructive pulmonary disease - with acute exacerbation with diffuse bronchospasm Acute hypoxic respiratory failure secondary to basal pneumonia, likely gram- negative and in addition acute exacerbation COPD Sepsis - with leukocytosis, tachycardia, tachypnea and pneumonia vs bronchitis as inciting infection, given fluids, antibiotics Hypertension - cont meds Atrial fibrillation - currently sinus on atenolo, cardizem, multaq Osteoarthritis - stable Jhyfj-Zbcwimgxm-Hhbdy syndrome - stable Sore throat - will treat thrush Hyperglycemia - could be steroid related, will check a1c FEN - Cardiac PPX - eliquis FULL CODE Dispo - inpatient likely 2 midnights History of Present Illness History of Present Illness Ms Pickett is a 68 year old female w/ PMHx Hypertension, chronic obstructive pulmonary disease, carpal tunnel syndrome, atrial fibrillation, Osteoarthritis, Gthbe-Udabcabhk-Vuhgr syndrome, and prior spontaneous pneumothorax who presents with 3-4 days of dyspnea and dyspnea on exertion, productive cough, nasal congestion and fever. Patient was 90% on room air and was asking for oxygen she came in. Patient was placed on 1 L and she is 96% on room air. 25 respirations. 100 fever. Given script for azithromycin by PCP earlier but failed outpatient treatment, came to ED. Found on CXR with patchy bibasilar airspace disease. WBC 13K, Na 128 EKG sinus with non-specific ST and T abnormalities 04/17: Feeling short of breath, still feels awful today. Barely out of bed. No CP. Weak. 04/18: Overnight developed sore throat. Now on 1 L, wheezing a bit improved. Still feeling weak. Treating thrush Thrush improved. Still very tight and wheezing, some greenish sputum up. Still on O2. No CP. Vitals Vitals Vital Signs Date Time Temp Pulse Resp B/P (MAP) Pulse Ox O2 Delivery O2 Flow Rate FiO2 04/19/19 07:00 97.8 75 18 140/49 (79) 92 Nasal Cannula 2.0 97.8 Physical Exam General: Alert, Oriented X3, Cooperative, No acute distress Lungs: Wheezing (EX in upper lobes ) Abdomen: Normal bowel sounds, Soft, No tenderness, No hepatosplenomegaly, No masses Extremities: No clubbing, No cyanosis, No edema, Normal pulses, No tenderness/swelling Skin: No rashes, No breakdown, No significant lesion Labs LABS Laboratory Tests Test 04/18/19 09:50 White Blood Count 12.8 x10^3/uL (4.0-11.0) Red Blood Count 3.63 x10^6/uL (3.50-5.40) Hemoglobin 11.4 g/dL (12.0-15.5) Hematocrit 34.1 % (36.0-47.0) Mean Corpuscular Volume 94 fL (79-100) Mean Corpuscular Hemoglobin 31 pg (25-35) Mean Corpuscular Hemoglobin Concent 33 g/dL (31-37) Red Cell Distribution Width 13.7 % (11.5-14.5) Platelet Count 352 x10^3/uL (140-400) Neutrophils (%) (Auto) 92 % (31-73) Lymphocytes (%) (Auto) 5 % (24-48) Monocytes (%) (Auto) 3 % (0-9) Eosinophils (%) (Auto) 0 % (0-3) Basophils (%) (Auto) 0 % (0-3) Neutrophils # (Auto) 11.8 x10^3/uL (1.8-7.7) Lymphocytes # (Auto) 0.6 x10^3/uL (1.0-4.8) Monocytes # (Auto) 0.4 x10^3/uL (0.0-1.1) Eosinophils # (Auto) 0.0 x10^3/uL (0.0-0.7) Basophils # (Auto) 0.0 x10^3/uL (0.0-0.2) Segmented Neutrophils % 87 % (35-66) Band Neutrophils % 6 % (0-9) Lymphocytes % 5 % (24-48) Monocytes % 2 % (0-10) Platelet Estimate Adequate (ADEQUATE) Sodium Level 131 mmol/L (136-145) Potassium Level 3.6 mmol/L (3.5-5.1) Chloride Level 94 mmol/L (98-107) Carbon Dioxide Level 24 mmol/L (21-32) Anion Gap 13 (6-14) Blood Urea Nitrogen 16 mg/dL (7-20) Creatinine 0.9 mg/dL (0.6-1.0) Estimated GFR (Cockcroft-Gault) 61.9 Glucose Level 238 mg/dL (70-99) Calcium Level 8.8 mg/dL (8.5-10.1) Comment Review of Relevant I have reviewed the following items henry (where applicable) has been applied. Labs Laboratory Tests Test 04/18/19 09:50 White Blood Count 12.8 x10^3/uL (4.0-11.0) Red Blood Count 3.63 x10^6/uL (3.50-5.40) Hemoglobin 11.4 g/dL (12.0-15.5) Hematocrit 34.1 % (36.0-47.0) Mean Corpuscular Volume 94 fL (79-100) Mean Corpuscular Hemoglobin 31 pg (25-35) Mean Corpuscular Hemoglobin Concent 33 g/dL (31-37) Red Cell Distribution Width 13.7 % (11.5-14.5) Platelet Count 352 x10^3/uL (140-400) Neutrophils (%) (Auto) 92 % (31-73) Lymphocytes (%) (Auto) 5 % (24-48) Monocytes (%) (Auto) 3 % (0-9) Eosinophils (%) (Auto) 0 % (0-3) Basophils (%) (Auto) 0 % (0-3) Neutrophils # (Auto) 11.8 x10^3/uL (1.8-7.7) Lymphocytes # (Auto) 0.6 x10^3/uL (1.0-4.8) Monocytes # (Auto) 0.4 x10^3/uL (0.0-1.1) Eosinophils # (Auto) 0.0 x10^3/uL (0.0-0.7) Basophils # (Auto) 0.0 x10^3/uL (0.0-0.2) Segmented Neutrophils % 87 % (35-66) Band Neutrophils % 6 % (0-9) Lymphocytes % 5 % (24-48) Monocytes % 2 % (0-10) Platelet Estimate Adequate (ADEQUATE) Sodium Level 131 mmol/L (136-145) Potassium Level 3.6 mmol/L (3.5-5.1) Chloride Level 94 mmol/L (98-107) Carbon Dioxide Level 24 mmol/L (21-32) Anion Gap 13 (6-14) Blood Urea Nitrogen 16 mg/dL (7-20) Creatinine 0.9 mg/dL (0.6-1.0) Estimated GFR (Cockcroft-Gault) 61.9 Glucose Level 238 mg/dL (70-99) Calcium Level 8.8 mg/dL (8.5-10.1) Laboratory Tests Test 04/18/19 09:50 White Blood Count 12.8 x10^3/uL (4.0-11.0) Red Blood Count 3.63 x10^6/uL (3.50-5.40) Hemoglobin 11.4 g/dL (12.0-15.5) Hematocrit 34.1 % (36.0-47.0) Mean Corpuscular Volume 94 fL (79-100) Mean Corpuscular Hemoglobin 31 pg (25-35) Mean Corpuscular Hemoglobin Concent 33 g/dL (31-37) Red Cell Distribution Width 13.7 % (11.5-14.5) Platelet Count 352 x10^3/uL (140-400) Neutrophils (%) (Auto) 92 % (31-73) Lymphocytes (%) (Auto) 5 % (24-48) Monocytes (%) (Auto) 3 % (0-9) Eosinophils (%) (Auto) 0 % (0-3) Basophils (%) (Auto) 0 % (0-3) Neutrophils # (Auto) 11.8 x10^3/uL (1.8-7.7) Lymphocytes # (Auto) 0.6 x10^3/uL (1.0-4.8) Monocytes # (Auto) 0.4 x10^3/uL (0.0-1.1) Eosinophils # (Auto) 0.0 x10^3/uL (0.0-0.7) Basophils # (Auto) 0.0 x10^3/uL (0.0-0.2) Segmented Neutrophils % 87 % (35-66) Band Neutrophils % 6 % (0-9) Lymphocytes % 5 % (24-48) Monocytes % 2 % (0-10) Platelet Estimate Adequate (ADEQUATE) Sodium Level 131 mmol/L (136-145) Potassium Level 3.6 mmol/L (3.5-5.1) Chloride Level 94 mmol/L (98-107) Carbon Dioxide Level 24 mmol/L (21-32) Anion Gap 13 (6-14) Blood Urea Nitrogen 16 mg/dL (7-20) Creatinine 0.9 mg/dL (0.6-1.0) Estimated GFR (Cockcroft-Gault) 61.9 Glucose Level 238 mg/dL (70-99) Calcium Level 8.8 mg/dL (8.5-10.1) Microbiology 04/15/19 Blood Culture - Preliminary, Resulted NO GROWTH AFTER 3 DAYS Medications Current Medications Albuterol/ Ipratropium (Duoneb) 3 ml 1X ONCE NEB Last administered on 04/15/19at 22:45; Start 04/15/19 at 22:45; Stop 04/15/19 at 22:46; Status DC Methylprednisolone Sodium Succinate (SOLU-Medrol 125MG VIAL) 125 mg 1X ONCE IV Last administered on 04/15/19at 23:17; Start 04/15/19 at 23:00; Stop 04/15/19 at 23:01; Status DC Doxycycline Hyclate 100 mg/ Dextrose 100 ml @ 50 mls/hr 1X ONCE IV Last administered on 04/15/19at 23:17; Start 04/15/19 at 23:00; Stop 04/16/19 at 00:59; Status DC Ceftriaxone Sodium (Rocephin) 1 gm 1X ONCE IVP Last administered on 04/15/19at 23:16; Start 04/15/19 at 23:00; Stop 04/15/19 at 23:01; Status DC Acetaminophen (Tylenol) 1,000 mg 1X ONCE PO Last administered on 04/15/19at 23:31; Start 04/15/19 at 23:00; Stop 04/15/19 at 23:01; Status DC Ondansetron HCl (Zofran) 4 mg PRN Q8HRS PRN IV NAUSEA/VOMITING; Start 04/16/19 at 00:15 Fentanyl Citrate (Fentanyl 2ml Vial) 50 mcg PRN Q1HR PRN IV PAIN; Start 04/16/19 at 00:15; Stop 04/17/19 at 00:14; Status DC Acetaminophen (Tylenol) 650 mg PRN Q4HRS PRN PO FEVER Last administered on 04/18/19at 16:50; Start 04/16/19 at 00:15 Albuterol/ Ipratropium (Duoneb) 3 ml RTQID NEB Last administered on 04/17/19 07:56; Start 04/16/19 at 08:00; Stop 04/17/19 at 09:08; Status DC Doxycycline Hyclate 100 mg/ Dextrose 100 ml @ 50 mls/hr Q12HR IV Last administered on 04/18/19 20:39; Start 04/16/19 at 09:30 Ceftriaxone Sodium (Rocephin) 1 gm Q24H IVP Last administered on 04/18/19 11:08; Start 04/16/19 at 10:00 Albuterol Sulfate (Ventolin Neb Soln) 2.5 mg PRN Q2HRS PRN NEB SHORTNESS OF BREATH; Start 04/16/19 at 09:30 Apixaban (Eliquis) 5 mg BID PO Last administered on 04/18/19 20:38; Start 04/16/19 at 10:00 Atenolol (Tenormin) 50 mg DAILY PO Last administered on 04/18/19 09:01; Start 04/16/19 at 10:00 Diltiazem HCl (Cardizem 24hr Cd) 120 mg DAILY PO Last administered on 04/18/19 09:02; Start 04/16/19 at 10:00 Dronedarone (Multaq) 400 mg BID PO Last administered on 04/16/19 10:13; Start 04/16/19 at 10:00; Stop 04/16/19 at 12:43; Status DC Pantoprazole Sodium (Protonix) 40 mg DAILYAC PO Last administered on 04/18/19 07:42; Start 04/16/19 at 10:00 Tramadol HCl (Ultram) 50 mg BID PRN PO PAIN; Start 04/16/19 at 09:30 Budesonide (Pulmicort) 0.5 mg RTBID NEB Last administered on 04/19/19 06:56; Start 04/16/19 at 20:00 Albuterol/ Ipratropium (Duoneb) 3 ml Q4HRS NEB Last administered on 04/19/19 06:56; Start 04/17/19 at 12:00 Methylprednisolone Sodium Succinate (SOLU-Medrol 40MG VIAL) 40 mg Q8HRS IV Last administered on 04/19/19 06:00; Start 04/17/19 at 09:30 Info (Anti-Coagulation Monitoring By Pharmacy) 1 each PRN DAILY PRN MC SEE COMMENTS Last administered on 04/18/19 11:09; Start 04/17/19 at 13:15 Lactobacillus Rhamnosus (Culturelle) 1 cap BID PO Last administered on 04/18/19 20:38; Start 04/17/19 at 21:00 Nystatin (Nystatin Oral Susp) 5 ml [id number] Last administered on 04/18/19 20:38; Start 04/18/19 at 13:30 Guaifenesin (Robitussin) 200 mg PRN QID PRN PO COUGH Last administered on 04/18/19 18:13; Start 04/18/19 at 18:00 Throat Lozenges (Cepacol Sore Throat Lozenge) 1 bam PRN Q2HRS PRN PO SORE THROAT Last administered on 04/18/19 18:13; Start 04/18/19 at 18:00 Benzonatate (Tessalon Perle) 100 mg [id number] PO Last administered on 04/18/19 20:38; Start 04/18/19 at 21:00 Diphenhydramine HCl (Benadryl) 25 mg PRN Q6HRS PRN PO ITCHING Last administered on 04/19/19 00:17; Start 04/19/19 at 00:00 Active Scripts Active Proair Hfa Inhaler (Albuterol Sulfate) 8.5 Gm Hfa.aer.ad 2 Puff INH PRN Q6HRS PRN 30 Days Albuterol Sulfate Neb Soln (Albuterol Sulfate) 2.5 Mg/3 Ml Vial.neb 2.5 Mg NEB PRN Q2HRS PRN 30 Days Reported Tramadol Hcl 50 Mg Tablet 50 Mg PO BID PRN Pantoprazole Sodium 40 Mg Tablet.dr 40 Mg PO DAILY Flovent 110MCG Hfa (Fluticasone Propionate) 12 Gm Aer.w.adap 2 Inh PO BID Eliquis (Apixaban) 5 Mg Tablet 5 Mg PO BID Multaq (Dronedarone Hcl) 400 Mg Tablet 400 Mg PO BID Atenolol 50 Mg Tablet 50 Mg PO DAILY Diltiazem 24HR Cd (Diltiazem Hcl) 120 Mg Cap.er.24h 120 Mg PO DAILY Tylenol (Acetaminophen) 325 Mg Tablet 325 Mg PO PRN Q6HRS PRN Vitals/I & O Vital Sign - Last 24 Hours 04/18/19 04/18/19 04/18/19 04/18/19 09:01 09:02 10:50 11:00 Temp 98.4 98.4 Pulse 78 78 71 Resp 12 B/P (MAP) 131/55 131/55 126/51 (76) Pulse Ox 94 O2 Delivery Nasal Cannula Nasal Cannula O2 Flow Rate 2.0 1.0 04/18/19 04/18/19 04/18/19 04/18/19 14:51 15:00 18:19 19:05 Temp 98.0 98.2 98.0 98.2 Pulse 73 73 Resp 16 20 B/P (MAP) 128/44 (72) 119/46 (70) Pulse Ox 94 94 93 O2 Delivery Nasal Cannula Nasal Cannula Nasal Cannula Nasal Cannula O2 Flow Rate 2.0 1.0 2.0 2.0 04/18/19 04/18/19 04/18/19 04/19/19 20:00 21:48 23:45 04:04 Temp 97.9 97.9 Pulse 85 Resp 20 B/P (MAP) 137/62 (87) Pulse Ox 94 95 O2 Delivery Nasal Cannula Nasal Cannula Nasal Cannula Nasal Cannula O2 Flow Rate 2.0 2.0 2.0 2.0 04/19/19 04/19/19 06:58 07:00 Temp 97.8 97.8 Pulse 75 Resp 18 B/P (MAP) 140/49 (79) Pulse Ox 94 92 O2 Delivery Nasal Cannula Nasal Cannula O2 Flow Rate 2.0 2.0 Intake and Output 04/18/19 04/18/19 04/19/19 15:00 23:00 07:00 Intake Total 480 ml 630 ml 650 ml Balance 480 ml 630 ml 650 ml ATRHUR SMITH MD Apr 19, 2019 08:23
--- NOTE | 2019-04-19 09:35 | PDOC ---
PULMONARY PROGRESS NOTES Subjective PT FEELS BETTER LESS SOA Vitals Vital Signs Date Time Temp Pulse Resp B/P (MAP) Pulse Ox O2 Delivery O2 Flow Rate FiO2 04/19/19 07:00 97.8 75 18 140/49 (79) 92 Nasal Cannula 2.0 97.8 ROS: No Nausea, No Chest Pain, No Abdominal Pain ( ) General: Alert, No acute distress Lungs: Wheezing (EX in upper lobes ) Cardiovascular: S1, S2 Abdomen: Soft, Non-tender Extremities: No Edema Skin: Warm, Dry Labs Laboratory Tests Test 04/18/19 09:50 White Blood Count 12.8 x10^3/uL (4.0-11.0) Red Blood Count 3.63 x10^6/uL (3.50-5.40) Hemoglobin 11.4 g/dL (12.0-15.5) Hematocrit 34.1 % (36.0-47.0) Mean Corpuscular Volume 94 fL (79-100) Mean Corpuscular Hemoglobin 31 pg (25-35) Mean Corpuscular Hemoglobin Concent 33 g/dL (31-37) Red Cell Distribution Width 13.7 % (11.5-14.5) Platelet Count 352 x10^3/uL (140-400) Neutrophils (%) (Auto) 92 % (31-73) Lymphocytes (%) (Auto) 5 % (24-48) Monocytes (%) (Auto) 3 % (0-9) Eosinophils (%) (Auto) 0 % (0-3) Basophils (%) (Auto) 0 % (0-3) Neutrophils # (Auto) 11.8 x10^3/uL (1.8-7.7) Lymphocytes # (Auto) 0.6 x10^3/uL (1.0-4.8) Monocytes # (Auto) 0.4 x10^3/uL (0.0-1.1) Eosinophils # (Auto) 0.0 x10^3/uL (0.0-0.7) Basophils # (Auto) 0.0 x10^3/uL (0.0-0.2) Segmented Neutrophils % 87 % (35-66) Band Neutrophils % 6 % (0-9) Lymphocytes % 5 % (24-48) Monocytes % 2 % (0-10) Platelet Estimate Adequate (ADEQUATE) Sodium Level 131 mmol/L (136-145) Potassium Level 3.6 mmol/L (3.5-5.1) Chloride Level 94 mmol/L (98-107) Carbon Dioxide Level 24 mmol/L (21-32) Anion Gap 13 (6-14) Blood Urea Nitrogen 16 mg/dL (7-20) Creatinine 0.9 mg/dL (0.6-1.0) Estimated GFR (Cockcroft-Gault) 61.9 Glucose Level 238 mg/dL (70-99) Calcium Level 8.8 mg/dL (8.5-10.1) Laboratory Tests Test 04/18/19 09:50 White Blood Count 12.8 x10^3/uL (4.0-11.0) Red Blood Count 3.63 x10^6/uL (3.50-5.40) Hemoglobin 11.4 g/dL (12.0-15.5) Hematocrit 34.1 % (36.0-47.0) Mean Corpuscular Volume 94 fL (79-100) Mean Corpuscular Hemoglobin 31 pg (25-35) Mean Corpuscular Hemoglobin Concent 33 g/dL (31-37) Red Cell Distribution Width 13.7 % (11.5-14.5) Platelet Count 352 x10^3/uL (140-400) Neutrophils (%) (Auto) 92 % (31-73) Lymphocytes (%) (Auto) 5 % (24-48) Monocytes (%) (Auto) 3 % (0-9) Eosinophils (%) (Auto) 0 % (0-3) Basophils (%) (Auto) 0 % (0-3) Neutrophils # (Auto) 11.8 x10^3/uL (1.8-7.7) Lymphocytes # (Auto) 0.6 x10^3/uL (1.0-4.8) Monocytes # (Auto) 0.4 x10^3/uL (0.0-1.1) Eosinophils # (Auto) 0.0 x10^3/uL (0.0-0.7) Basophils # (Auto) 0.0 x10^3/uL (0.0-0.2) Segmented Neutrophils % 87 % (35-66) Band Neutrophils % 6 % (0-9) Lymphocytes % 5 % (24-48) Monocytes % 2 % (0-10) Platelet Estimate Adequate (ADEQUATE) Sodium Level 131 mmol/L (136-145) Potassium Level 3.6 mmol/L (3.5-5.1) Chloride Level 94 mmol/L (98-107) Carbon Dioxide Level 24 mmol/L (21-32) Anion Gap 13 (6-14) Blood Urea Nitrogen 16 mg/dL (7-20) Creatinine 0.9 mg/dL (0.6-1.0) Estimated GFR (Cockcroft-Gault) 61.9 Glucose Level 238 mg/dL (70-99) Calcium Level 8.8 mg/dL (8.5-10.1) Medications Active Scripts Medications Dose Route/Sig Max Daily Dose Days Date Category Tramadol Hcl 50 Mg Tablet 50 Mg PO BID PRN 04/16/19 Reported Pantoprazole Sodium 40 Mg Tablet.dr 40 Mg PO DAILY 04/16/19 Reported Flovent 110MCG Hfa (Fluticasone Propionate) 12 Gm Aer.w.adap 2 Inh PO BID 04/16/19 Reported Eliquis (Apixaban) 5 Mg Tablet 5 Mg PO BID 04/16/19 Reported Multaq (Dronedarone Hcl) 400 Mg Tablet 400 Mg PO BID 04/16/19 Reported Atenolol 50 Mg Tablet 50 Mg PO DAILY 04/16/19 Reported Diltiazem 24HR Cd (Diltiazem Hcl) 120 Mg Cap.er.24h 120 Mg PO DAILY 04/16/19 Reported Proair Hfa Inhaler (Albuterol Sulfate) 8.5 Gm Hfa.aer.ad 2 Puff INH PRN Q6HRS PRN 30 10/09/17 Rx Albuterol Sulfate Neb Soln (Albuterol Sulfate) 2.5 Mg/3 Ml Vial.neb 2.5 Mg NEB PRN Q2HRS PRN 30 04/19/17 Rx Tylenol (Acetaminophen) 325 Mg Tablet 325 Mg PO PRN Q6HRS PRN 04/11/17 Reported Impression . IMPRESSION: 1. Acute hypoxic respiratory failure secondary to basal pneumonia, likely gram-negative and in addition acute exacerbation of chronic obstructive pulmonary disease contributing to respiratory failure as well. 2. Diffuse bronchospasm secondary to acute exacerbation of chronic obstructive pulmonary disease. 3. Abnormal chest x-ray with likely basal infiltrates. Clinically, she has pneumonia. 4. Influenza screen negative. Plan . HOME IN AM FOLLOW UP IN OFFICE IN MAY JOHNSON CHIN MD Apr 19, 2019 09:35
[2019-04-19] MEDS: PANTOPRAZOLE 40 MG TABLET.DR. PO SCH (10:34)
[2019-04-19] MEDS: APIXABAN 5 MG TABLET. PO SCH ×2 (10:34→22:13)
[2019-04-19] MEDS: LACTOBACILLUS RHAMNOSUS GG 1 CAPSULE. PO SCH ×2 (10:34→22:13)
[2019-04-19] MEDS: BENZONATATE 100 MG CAPSULE. PO SCH ×3 (10:34→22:13)
[2019-04-19] MEDS: ATENOLOL 50 MG TABLET. PO SCH (10:35)
[2019-04-19] MEDS: cefTRIAXone IV Push 1 GM VIAL. IVP SCH (10:35)
[2019-04-19] MEDS: DOXYCYCLINE HYCLATE 100 MG in IV DEXTROSE 5% 100ML 100 ML IV SCH ×2 (10:36→22:13)
[2019-04-19 10:44] VITALS: BP 140/54
[2019-04-19] MEDS: NYSTATIN 100,000 UNITS/ML 5 ML ORAL.SUSP. SWSW SCH ×4 (11:14→22:13)
[2019-04-19] MEDS ORDERED: IV DEXTROSE 5% 250 ML BAG. IV PRN (12:15)
[2019-04-19] MEDS ORDERED: DEXTROSE 50% 25 GM / 50ML DISP.SYRIN. IV PRN (12:15)
[2019-04-19 15:18] VITALS: BP 100/69
[2019-04-19] MEDS: ANTI-COAG MONITOR BY PHARMACY. MC PRN (15:31)
[2019-04-19] MEDS: INSULIN LISPRO 300 UNITS/3 ML VIAL. SQ SCH ×2 (16:30→21:00)
[2019-04-19 19:02] VITALS: BP 151/62
[2019-04-19 23:07] LABS: HEMOGLOBIN A1C 5.4 % (4.8-5.6)
[2019-04-19 23:18] VITALS: BP 130/73
[2019-04-20] MEDS: IPRATRPIUM/ALBUTEROL 0.5/2.5MG 3 ML NEBU. NEB SCH ×2 (03:06→07:39)
[2019-04-20] MEDS: methylPREDNISolone SOD SUCC PF 40 MG/ML VIAL. IV SCH (06:00)
[2019-04-20] MEDS: INSULIN LISPRO 300 UNITS/3 ML VIAL. SQ SCH (07:30)
[2019-04-20] MEDS: BUDESONIDE 0.5 MG/2 ML NEBU. NEB SCH (07:39)
[2019-04-20 07:53] VITALS: BP 144/48
--- NOTE | 2019-04-20 08:47 | PDOC ---
PULMONARY PROGRESS NOTES Subjective PT FEELS BETTER LESS SOA Vitals Vital Signs Date Time Temp Pulse Resp B/P (MAP) Pulse Ox O2 Delivery O2 Flow Rate FiO2 04/20/19 07:53 97.8 74 18 144/48 (80) 93 Room Air 97.8 04/19/19 23:46 2.0 ROS: No Nausea, No Chest Pain, No Abdominal Pain ( ) General: Alert, No acute distress Lungs: Wheezing (EX in upper lobes ) Cardiovascular: S1, S2 Abdomen: Soft, Non-tender Extremities: No Edema Skin: Warm, Dry Labs Laboratory Tests Test 04/18/19 09:50 04/19/19 16:40 04/19/19 20:51 04/20/19 07:14 White Blood Count 12.8 x10^3/uL (4.0-11.0) Red Blood Count 3.63 x10^6/uL (3.50-5.40) Hemoglobin 11.4 g/dL (12.0-15.5) Hematocrit 34.1 % (36.0-47.0) Mean Corpuscular Volume 94 fL (79-100) Mean Corpuscular Hemoglobin 31 pg (25-35) Mean Corpuscular Hemoglobin Concent 33 g/dL (31-37) Red Cell Distribution Width 13.7 % (11.5-14.5) Platelet Count 352 x10^3/uL (140-400) Neutrophils (%) (Auto) 92 % (31-73) Lymphocytes (%) (Auto) 5 % (24-48) Monocytes (%) (Auto) 3 % (0-9) Eosinophils (%) (Auto) 0 % (0-3) Basophils (%) (Auto) 0 % (0-3) Neutrophils # (Auto) 11.8 x10^3/uL (1.8-7.7) Lymphocytes # (Auto) 0.6 x10^3/uL (1.0-4.8) Monocytes # (Auto) 0.4 x10^3/uL (0.0-1.1) Eosinophils # (Auto) 0.0 x10^3/uL (0.0-0.7) Basophils # (Auto) 0.0 x10^3/uL (0.0-0.2) Segmented Neutrophils % 87 % (35-66) Band Neutrophils % 6 % (0-9) Lymphocytes % 5 % (24-48) Monocytes % 2 % (0-10) Platelet Estimate Adequate (ADEQUATE) Sodium Level 131 mmol/L (136-145) Potassium Level 3.6 mmol/L (3.5-5.1) Chloride Level 94 mmol/L (98-107) Carbon Dioxide Level 24 mmol/L (21-32) Anion Gap 13 (6-14) Blood Urea Nitrogen 16 mg/dL (7-20) Creatinine 0.9 mg/dL (0.6-1.0) Estimated GFR (Cockcroft-Gault) 61.9 Glucose Level 238 mg/dL (70-99) Hemoglobin A1c 5.4 % (4.8-5.6) Calcium Level 8.8 mg/dL (8.5-10.1) Glucose (Fingerstick) 130 mg/dL (70-99) 150 mg/dL (70-99) 113 mg/dL (70-99) Laboratory Tests Test 04/19/19 16:40 04/19/19 20:51 04/20/19 07:14 Glucose (Fingerstick) 130 mg/dL (70-99) 150 mg/dL (70-99) 113 mg/dL (70-99) Medications Active Scripts Medications Dose Route/Sig Max Daily Dose Days Date Category Tramadol Hcl 50 Mg Tablet 50 Mg PO BID PRN 04/16/19 Reported Pantoprazole Sodium 40 Mg Tablet.dr 40 Mg PO DAILY 04/16/19 Reported Flovent 110MCG Hfa (Fluticasone Propionate) 12 Gm Aer.w.adap 2 Inh PO BID 04/16/19 Reported Eliquis (Apixaban) 5 Mg Tablet 5 Mg PO BID 04/16/19 Reported Multaq (Dronedarone Hcl) 400 Mg Tablet 400 Mg PO BID 04/16/19 Reported Atenolol 50 Mg Tablet 50 Mg PO DAILY 04/16/19 Reported Diltiazem 24HR Cd (Diltiazem Hcl) 120 Mg Cap.er.24h 120 Mg PO DAILY 04/16/19 Reported Proair Hfa Inhaler (Albuterol Sulfate) 8.5 Gm Hfa.aer.ad 2 Puff INH PRN Q6HRS PRN 30 10/09/17 Rx Albuterol Sulfate Neb Soln (Albuterol Sulfate) 2.5 Mg/3 Ml Vial.neb 2.5 Mg NEB PRN Q2HRS PRN 30 04/19/17 Rx Tylenol (Acetaminophen) 325 Mg Tablet 325 Mg PO PRN Q6HRS PRN 04/11/17 Reported Impression . IMPRESSION: 1. Acute hypoxic respiratory failure secondary to basal pneumonia, likely gram-negative and in addition acute exacerbation of chronic obstructive pulmonary disease contributing to respiratory failure as well. 2. Diffuse bronchospasm secondary to acute exacerbation of chronic obstructive pulmonary disease. 3. Abnormal chest x-ray with likely basal infiltrates. Clinically, she has pneumonia. 4. Influenza screen negative. Plan . HOME TODAY FOLLOW UP IN OFFICE IN MAY WITH JOHNSON JIMENEZ MD Apr 20, 2019 08:47
[2019-04-20] MEDS: cefTRIAXone IV Push 1 GM VIAL. IVP SCH (10:00)
[2019-04-20] MEDS: NYSTATIN 100,000 UNITS/ML 5 ML ORAL.SUSP. SWSW SCH (10:18)
[2019-04-20] MEDS: guaiFENesin ORAL 200 MG/10 ML LIQUID. PO PRN (10:18)
[2019-04-20] MEDS: BENZONATATE 100 MG CAPSULE. PO SCH (10:19)
[2019-04-20] MEDS: ACETAMINOPHEN 325 MG TABLET. PO PRN (10:20)
[2019-04-20] MEDS: PANTOPRAZOLE 40 MG TABLET.DR. PO SCH (10:20)
[2019-04-20 10:21] VITALS: BP 144/48
[2019-04-20] MEDS: LACTOBACILLUS RHAMNOSUS GG 1 CAPSULE. PO SCH (10:21)
[2019-04-20] MEDS: ATENOLOL 50 MG TABLET. PO SCH (10:21)
[2019-04-20] MEDS: APIXABAN 5 MG TABLET. PO SCH (10:22)
[2019-04-20] MEDS: DOXYCYCLINE HYCLATE 100 MG in IV DEXTROSE 5% 100ML 100 ML IV SCH (10:22)
--- NOTE | 2019-04-20 12:11 | NUR ---
Pt was escorted out via [facility], tele and IV discontinued earlier. Pt wheeled out to vehicle, with family member and belongings.
== END 2019-04-20 12:30 | disposition home or self-care (01) | DRG 871 ==
LOC: ER 21:13 → 6 SOUTH 23:14
PROVIDERS: ADMIT Internal Medicine; ATTEND Internal Medicine
DX: A41.9 Sepsis, unspecified organism (principal); J96.01 Acute respiratory failure with hypoxia; J18.9 Pneumonia, unspecified organism; J44.0 Chronic obstructive pulmonary disease with (acute) lower respiratory infection; J44.1 Chronic obstructive pulmonary disease with (acute) exacerbation; B37.9 Candidiasis, unspecified; F17.210 Nicotine dependence, cigarettes, uncomplicated; I10 Essential (primary) hypertension; I48.91 Unspecified atrial fibrillation; J20.9 Acute bronchitis, unspecified; M19.90 Unspecified osteoarthritis, unspecified site; Z82.49 Family history of ischemic heart disease and other diseases of the circulatory system; Z90.49 Acquired absence of other specified parts of digestive tract; I45.6 Pre-excitation syndrome
CPT/HCPCS: 36415; 36600; 71045; 80048; 80053; 82805; 82962; 83036; 83605; 84145; 84484; 85007; 85025; 87040; 87804; 93005; 94618; 94640; J0696; J1815; J2920; J2930; J3490; J7620; J7626; Q0163; 97530; 99285-25; G0378

== ENCOUNTER 2020-08-12 16:33 | Emergency (ER) | payer MEDICARE ==
[~2020-08-12] VITALS: Ht 162.6 cm; Wt 67.0 kg
[~2020-08-12 16:33] MED LIST changes: -ALEN35TA11 PO; +ALEN35TA45 PO; -ALEN70TA6 PO; +ALEN70TA71 PO; +APIX5TAB PO; +DILT120C99 PO; +DRON400T6 PO; +FLUT12AE PO; -MAGN2400 PO; +MAGN24003 PO; +PANT40TA6 PO; +SENN-182 PO; -SENN-80 PO; +TRAM50TA PO
--- NOTE | 2020-08-12 18:48 | PHYS DOC ---
Past Medical History Past Medical History: A-Fib, COPD, Other Additional Past Medical Histor: WPW (BLANCHE CHE MD) Past Surgical History: Appendectomy, Cervical Fusion, Other Additional Past Surgical Histo: left clavicle, kidney stents (BLANCHE CHE MD) Smoking Status: Former Smoker Alcohol Use: Occasionally Drug Use: None (BLANCHE CHE MD) Adult General Chief Complaint Chief Complaint: BLOOD IN URINE [facility] Patient is a 70 year old female presenting the emergency department complaint of new onset hematuria. Patient states over the last 2 days she is noted significant amount of blood whenever she urinates. Patient states this is not when she is a bowel movement denies any vaginal bleeding. Adamantly denies any suprapubic or other abdominal pain as well as any nausea, vomiting, dizziness, weakness, chest pain or other symptoms. Patient states she had similar episode 1 year ago and at that time was diagnosed with urinary tract infection based on antibiotics. (BLANCHE CHE MD) Review of Systems Review of Systems Constitutional: Denies fever or chills [] Eyes: Denies change in visual acuity, redness, or eye pain [] HENT: Denies nasal congestion or sore throat [] Respiratory: Denies cough or shortness of breath [] Cardiovascular: No additional information not addressed in HPI [] GI: Denies abdominal pain, nausea, vomiting, bloody stools or diarrhea [] : Denies dysuria or hematuria [] Musculoskeletal: Denies back pain or joint pain [] Integument: Denies rash or skin lesions [] Neurologic: Denies headache, focal weakness or sensory changes [] Endocrine: Denies polyuria or polydipsia [] All other systems were reviewed and found to be within normal limits, except as documented in this note. (BLANCHE CHE MD) Allergies Allergies Allergies Coded Allergies Type Severity Reaction Last Updated Verified Iodine and Iodide Containing Produc Allergy Severe Shortness of Air 10/03/17 Yes iodine Allergy Severe 10/03/17 Yes [facility] Physical Exam Physical Exam Constitutional: Well developed, well nourished, no acute distress, non-toxic appearance. [] HENT: Normocephalic, atraumatic, bilateral external ears normal, oropharynx moist, no oral exudates, nose normal. [] Eyes: PERRLA, EOMI, conjunctiva normal, no discharge. [] Neck: Normal range of motion, no tenderness, supple, no stridor. [] Cardiovascular:Heart rate regular rhythm, no murmur [] Lungs & Thorax: Bilateral breath sounds clear to auscultation [] Abdomen: Bowel sounds normal, soft, no tenderness, no masses, no pulsatile masses. [] Skin: Warm, dry, no erythema, no rash. [] Back: No tenderness, no CVA tenderness. [] Extremities: No tenderness, no cyanosis, no clubbing, ROM intact, no edema. [] Neurologic: Alert and oriented X 3, normal motor function, normal sensory function, no focal deficits noted. [] Psychologic: Affect normal, judgement normal, mood normal. [] (BLANCHE CHE MD) Current Patient Data Vital Signs Vital Signs Date Time Temp Pulse Resp B/P (MAP) Pulse Ox O2 Delivery O2 Flow Rate FiO2 08/13/20 01:15 68 16 141/67 (91) 96 Room Air 08/12/20 16:50 98.9 98.9 ([facility]) Lab Values Laboratory Tests Test 08/12/20 18:55 08/12/20 20:34 Urine Collection Type Unknown Urine Color Red Urine Clarity Bloody Urine pH (<5.0-8.0) Urine Specific [place] (1.000-1.030) Urine Protein mg/dL (NEG-TRACE) Urine Glucose (UA) mg/dL (NEG) Urine Ketones (Stick) mg/dL (NEG) Urine Blood (NEG) Urine Nitrite (NEG) Urine Bilirubin (NEG) Urine Urobilinogen Dipstick mg/dL (0.2 mg/dL) Urine Leukocyte Esterase (NEG) Urine RBC Field obscured /HPF (0-2) Urine WBC 0 /HPF (0-4) Urine Bacteria 0 /HPF (0-FEW) White Blood Count 10.1 x10^3/uL (4.0-11.0) Red Blood Count 3.61 x10^6/uL (3.50-5.40) Hemoglobin 11.3 g/dL (12.0-15.5) L Hematocrit 32.9 % (36.0-47.0) L Mean Corpuscular Volume 91 fL (79-100) Mean Corpuscular Hemoglobin 31 pg (25-35) Mean Corpuscular Hemoglobin Concent 34 g/dL (31-37) Red Cell Distribution Width 12.4 % (11.5-14.5) Platelet Count 292 x10^3/uL (140-400) Neutrophils (%) (Auto) 67 % (31-73) Lymphocytes (%) (Auto) 21 % (24-48) L Monocytes (%) (Auto) 10 % (0-9) H Eosinophils (%) (Auto) 1 % (0-3) Basophils (%) (Auto) 1 % (0-3) Neutrophils # (Auto) 6.8 x10^3/uL (1.8-7.7) Lymphocytes # (Auto) 2.1 x10^3/uL (1.0-4.8) Monocytes # (Auto) 1.0 x10^3/uL (0.0-1.1) Eosinophils # (Auto) 0.1 x10^3/uL (0.0-0.7) Basophils # (Auto) 0.1 x10^3/uL (0.0-0.2) Prothrombin Time 14.5 SEC (11.7-14.0) H Prothrombin Time INR 1.2 (0.8-1.1) H Activated Partial Thromboplast Time 38 SEC (24-38) Sodium Level 130 mmol/L (136-145) L Potassium Level 3.9 mmol/L (3.5-5.1) Chloride Level 97 mmol/L (98-107) L Carbon Dioxide Level 25 mmol/L (21-32) Anion Gap 8 (6-14) Blood Urea Nitrogen 17 mg/dL (7-20) Creatinine 0.9 mg/dL (0.6-1.0) Estimated GFR (Cockcroft-Gault) 61.5 Glucose Level 107 mg/dL (70-99) H Calcium Level 8.7 mg/dL (8.5-10.1) Laboratory Tests 08/12/20 20:34 Laboratory Tests 08/12/20 20:34 (DONYA MARQUIS DO) EKG EKG [] (BLANCHE CHE MD) Radiology/Procedures Radiology/Procedures [] (BLANCHE CHE MD) Radiology/Procedures IMAGING REPORT Signed PATIENT: JERRELL ROTH ACCOUNT: [id number] : 1950 LOCATION: ER AGE: 70 SEX: F EXAM STATUS: REG ER ORD. PHYSICIAN: DONYA MARQUIS DO REASON: hematuria PROCEDURE: CT ABDOMEN PELVIS WO CONTRAST CT STUDY OF THE ABDOMEN AND PELVIS WITHOUT CONTRAST CLINICAL INDICATIONS: Hematuria. TECHNIQUE: Noncontrast helical CT scanning of the abdomen and pelvis was performed. Without contrast, the sensitivity to detect organ pathology and GI tract pathology is decreased. PQRS compliance Statement One or more of the following individualized dose reduction techniques were utilized for this study: 1. Automated exposure control 2. Adjustment of the mA and/or kV according to patient size 3. Use of iterative reconstruction technique COMPARISON: September 30, 2017. FINDINGS: The liver and spleen and pancreas and gallbladder are normal. No extrahepatic biliary ductal dilatation is seen. No adrenal mass is evident. Multiple bilateral renal nodules are seen some of which represent cysts. However, there is one nodule seen within the lateral aspect of the midportion of the right kidney which demonstrates Hounsfield unit measurements higher into the 20's. This could represent a hyperdense cyst and there is no change in size of this nodule in comparison to the prior study consistent with a cyst rather than a solid nodule. Therefore, no further workup is needed. No hydronephrosis or hydroureter or urinary tract stone is evident. There is plaque-like thickening of the posterior right side of the urinary bladder. This measures 16 mm in thickness. No uterine mass is seen. No dominant ovarian cyst or mass is evident. Calcified atheromatous disease of the abdominal aorta is seen but no focal aneurysmal dilatation is apparent. Sigmoid diverticulosis is seen without diverticulitis. The appendix is not identified but there are no CT findings of appendicitis. No obstructive bowel pattern is evident. No free air or free fluid or mesenteric edema is seen. No lung base consolidation is seen. No lytic process is evident. IMPRESSION: Posterior plaque-like thickening of the urinary bladder wall which could represent neoplasm of the urinary bladder. Bilateral renal cysts which have not changed significantly from the previous study. No further workup is needed. No hydronephrosis or hydroureter or urinary tract stone is seen. Electronically signed by: Celina Collins MD (08/12/2020 11:59 PM) [id number] DICTATED and SIGNED BY: CELINA COLLINS MD DATE: 08/12/20 [id number] ([facility],DONYA M DO) Course & Med Decision Making Course & Med Decision Making Pertinent Labs and Imaging studies reviewed. (See chart for details) 70-year-old female presented the emergency department complaint of new onset hematuria. Will initiate work-up with the urinalysis to confirm the presence of hematuria. At this time given the patient's age and lack of other symptoms I do suspect this is likely secondary to urinary tract infection with underlying c ystic malignancy is also consideration. I already counseled the patient extensively on the need for urology follow-up. Patient has no tenderness and therefore diagnosis of appendicitis, cholecystitis or colitis at this time is less likely. Also consideration for other vascular disease which are less likely given the patient's lack of other symptomatology and normal vital signs (BLANCHE CHE MD) Course & Med Decision Making I received signout at shift change from Dr. Che. Patient was pending a urinalysis, concern for urinary tract infection versus renal malignancy. EMR was reviewed and patient does have history of GI bleed with ulcers, not on any anticoagulants. Patient does have normocytic anemia but hemoglobin is consistent with her labs from 2 years ago-no significant drop. Prolonged ED stay due to high volume. Patient with asymptomatic, uncontrolled hypertension with no endorgan damage. Pt does report increased urinary frequency but no dysuria, hematuria, flank pain or nausea or vomiting. Has supportive family at home and here in ed with granddaughter-both pt and daughter agree that she is well appearing/at her baseline and safe for dc home. CT report printed and given to patient to take to her primary care physician and urology follow-up. No h/o recent foreign travel. Will treat for UTI. Will discharge home with strict ED return precautions were given for fever, dyspnea/increased work of breathing, chest or back pain, flulike symptoms, dehydration with intractable nausea or vomiting or flank pain (sepsis/pyelonephritis). Encouraged urgent outpatient follow-up with PMD within 1 to 2 days for hemoglobin check and urology within 1 week. Life-threatening processes were considered but are low suspicion at this time, given history, physical exam and ED workup. Pt was educated on all prescription medications and adverse effects. All patient's questions were answered and pt was stable at time of discharge. Life/limb-threatening differential includes but is not limited to, trauma, infection, nephrolithiasis, kidney disease, malignancy, obstructive uropathy, BPH, AAA/AVF/aortic dissection, or schistosomiasis. I spoken with the patient and her caregivers. I explained the patient's condition, diagnoses and treatment plan based on the information available to me at this time. I have answered the patient and her caregiver's questions and addressed any concerns. The patient and her caregivers have a good unders tanding of patient's diagnosis, condition and treatment plan as can be expected at this point. Vital signs have been stable. Patient's condition is stable and appropriate for discharge from the emergency department. Patient will pursue further outpatient evaluation with primary care physician or other designated or consulting physician as outlined in the discharge instructions. The patient and/or caregivers are agreeable to this plan of care and follow-up instructions have been explained in detail. The patient and/or caregivers have received these instructions in written form and have expressed an understanding of the discharge instructions. The patient and/or caregivers are aware that any significant change of condition or worsening of symptoms should prompt immediate return to this or the closest emergency department or call to 911. ([facility] Dragon Disclaimer Dragon Disclaimer This electronic medical record was generated, in whole or in part, using a voice recognition dictation system. (BLANCHE CHE MD) Departure Departure Impression: Primary Impression: Painless hematuria Additional Impressions: Bladder mass Normocytic anemia Disposition: 01 HOME / SELF CARE / HOMELESS Condition: STABLE Referrals: Robbie ROJAS MD (PCP) in 24-48 hours for hemoglobin check Patient Instructions: Hematuria, Adult Additional Instructions: FOLLOW UP WITH UROLOGY: for evaluation of bladder within 7 days [facility] [address] [place] [address] [place] [address] [address] [place] [address] [place] [address] [address] [place] [address] EMERGENCY DEPARTMENT GENERAL DISCHARGE INSTRUCTIONS Thank you for coming to [facility] Emergency Department (ED) today and trusting us with you care. We trust that you had a positive experience in our Emergency Department. If you wish to speak to the department management, you may call the Director at [phone]. YOUR FOLLOW UP INSTRUCTIONS ARE FOLLOWS: 1. Do you have a private Doctor? If you do not have a private doctor, please ask for a resource list of physicians or clinics that may be able to assist you with foll ow up care. 2. The Emergency Physicain has interpreted your x-rays. The X-Ray specialist will also review them. If there is a change in the findings, you will be notified in 48 hours when at all possible. 3. A lab test or culture has been done, your results will be reviewed and you will be notified if you need a change in treatment. ADDITIONAL INSTRUCTIONS AND INFORMATION: 1. Your care today has been supervised by a physician who is specially trained in emergency care. Many problems require more than one evaluation for a complete diagnosis and treatment. We recommend that you schedule your follow up appointment as recommended to ensure complete treatment of you illness or injury. If you are unable to obtain follow up care and continue to have a problem, or if your condition worsens, we recommend that you return to the ED. 2. We are not able to safely determine your condition over the phone nor are we able to give sound medical advice over the phone. For these safety reasons, if you call for medical advice we will ask you to come to the ED for further evaluation. 3. If you have any questions regarding these discharge instructions please call the ED at [phone]. SAFETY INFORMATION: In the interest of safety, wellness, and injury prevention; we encourage you to wear your sealbelt, if you smoke; quite smoking, and we encourage family to use a pr otective helmet for bicycling and other sporting events that present an increased risk for head injury. IF YOUR SYMPTOMS WORSEN OR NEW SYMPTOMS DEVELOP, OR YOU HAVE CONCERNS ABOUT YOUR CONDITION; OR IF YOUR CONDITION WORSENS WHILE YOU ARE WAITING FOR YOUR FOLLOW UP APPOINTMENT; EITHER CONTACT YOUR PRIMARY CARE DOCTOR, THE PHYSICIAN WHOSE NAME AND NUMBER YOU WERE GIVEN, OR RETURN TO THE ED IMMEDIATELY. Scripts Cefpodoxime Proxetil (CEFPODOXIME PROXETIL) 200 Mg Tablet 1 TAB PO BID for 10 Days, #20 TAB Prov: DONYA MARQUIS DO 08/13/20 Problem Qualifiers BLANCHE CHE MD Aug 12, 2020 18:48 DONYA MARQUIS DO Aug 13, 2020 01:16
[2020-08-12 19:17] LABS: CLARITY,URINE BLOODY; COLOR,URINE RED
[2020-08-12 19:18] LABS: RBC,URINE FIELD OBSCURED /HPF (0-2)
[2020-08-12 19:25] LABS: BACTERIA,URINE 0 /HPF (0-FEW); WBC,URINE 0 /HPF (0-4)
--- NOTE | 2020-08-12 20:29 | RAD ---
XR CHEST 1V Clinical Indication: Reason: hematuria, evaluate mediastinum / Spl. Instructions: / History: Comparison: AP chest April 15, 2019. Findings: Atherosclerotic thoracic aorta. The cardiac size is normal. There is suture material in the right upp er lung. There is minimal left basilar atelectasis. There is no pneumothorax. No pleural effusion is appreciated. There are old left rib fractures.. There is internal fixation hardware of the left clavi jamie, stable. IMPRESSION: No acute cardiopulmonary process. Electronically signed by: Mario Alberto Oneal MD (08/12/2020 8:27 PM) [facility]
[2020-08-12 20:49] LABS: BASO # 0.1 x10^3/uL (0.0-0.2); BASO % 1 % (0-3); EOS # 0.1 x10^3/uL (0.0-0.7); EOS % 1 % (0-3); HEMATOCRIT 32.9 % (36.0-47.0); HEMOGLOBIN 11.3 g/dL (12.0-15.5); LYMPH # 2.1 x10^3/uL (1.0-4.8); LYMPH % 21 % (24-48); MEAN CORPUSCULAR HEMOGLOBIN 31 pg (25-35); MEAN CORPUSCULAR HGB CONC 34 g/dL (31-37); MEAN CORPUSCULAR VOLUME 91 fL (79-100); MONO % 10 % (0-9); NEUT # 6.8 x10^3/uL (1.8-7.7); NEUT % 67 % (31-73); PLATELET COUNT 292 x10^3/uL (140-400); RED BLOOD COUNT 3.61 x10^6/uL (3.50-5.40); RED CELL DISTRIBUTION WIDTH 12.4 % (11.5-14.5); WHITE BLOOD COUNT 10.1 x10^3/uL (4.0-11.0)
[2020-08-12 20:55] LABS: CALCIUM 8.7 mg/dL (8.5-10.1); CREATININE 0.9 mg/dL (0.6-1.0); GFR 61.5; POTASSIUM 3.9 mmol/L (3.5-5.1)
[2020-08-12 20:57] LABS: PROTHROMBIN TIME PATIENT 14.5 SEC (11.7-14.0)
--- NOTE | 2020-08-13 00:01 | RAD ---
CT STUDY OF THE ABDOMEN AND PELVIS WITHOUT CONTRAST CLINICAL INDICATIONS: Hematuria. TECHNIQUE: Noncontrast helical CT scanning of the abdomen and pelvis was performed. Without contrast, the sensitivity to detect organ pathology and GI tract pathology is decreased. PQRS compliance Statement One or more of the following individualized dose reduction techniques were utilized for this study: 1. Automated exposure control 2. Adjustment of the mA and/or kV according to patient size 3. Use of iterative reconstruction technique COMPARISON: September 30, 2017. FINDINGS: The liver and spleen and pancreas and gallbladder are normal. No extrahepatic biliary ducta l dilatation is seen. No adrenal mass is evident. Multiple bilateral renal nodules are seen some of w hich represent cysts. However, there is one nodule seen within the lateral aspect of the midportion o f the right kidney which demonstrates Hounsfield unit measurements higher into the 20's. This could r epresent a hyperdense cyst and there is no change in size of this nodule in comparison to the prior s tudy consistent with a cyst rather than a solid nodule. Therefore, no further workup is needed. No hy dronephrosis or hydroureter or urinary tract stone is evident. There is plaque-like thickening of the posterior right side of the urinary bladder. This measures 16 mm in thickness. No uterine mass is se en. No dominant ovarian cyst or mass is evident. Calcified atheromatous disease of the abdominal aort a is seen but no focal aneurysmal dilatation is apparent. Sigmoid diverticulosis is seen without dive rticulitis. The appendix is not identified but there are no CT findings of appendicitis. No obstructi ve bowel pattern is evident. No free air or free fluid or mesenteric edema is seen. No lung base cons olidation is seen. No lytic process is evident. IMPRESSION: Posterior plaque-like thickening of the urinary bladder wall which could represent neopla sm of the urinary bladder. Bilateral renal cysts which have not changed significantly from the previous study. No further workup is needed. No hydronephrosis or hydroureter or urinary tract stone is seen. Electronically signed by: Marquez Collins MD (08/12/2020 11:59 PM) [id number]
[2020-08-13 01:15] VITALS: BP 141/67
[2020-08-13] MEDS ORDERED: CEFP200T PO (01:29)
== END 2020-08-13 01:36 | disposition home or self-care (01) ==
LOC: ER 16:33
DX: N32.0 Bladder-neck obstruction (principal); R31.9 Hematuria, unspecified; D64.9 Anemia, unspecified; I48.20 Chronic atrial fibrillation, unspecified; J44.9 Chronic obstructive pulmonary disease, unspecified; Z87.891 Personal history of nicotine dependence; Z90.89 Acquired absence of other organs; Z98.890 Other specified postprocedural states; Z91.041 Radiographic dye allergy status
CPT/HCPCS: 36415; 71045; 74176; 80048; 81001; 85025; 85610; 85730; 99285

== ENCOUNTER → 2020-11-30 | Outpatient (CLI) | payer MEDICARE ==
[~2020-11-30] MED LIST changes: -ALEN35TA45 PO; +ALEN35TA47 PO; +CEFP200T PO
--- NOTE | 2020-11-30 18:05 | CARD ---
MR#: [id number] Date of Study: 11/30/2020 Ordering Physician: ANNA GARDNER, Referring Physician: Manoj CUELLAR: Jaswinder Price [facility] APPROVED REPORT EXAM: Two-dimensional and M-mode echocardiogram with Doppler and color Doppler. Other Information Quality : FairHR: 61bpm Rhythm : NSR INDICATION Atrial Fibrillation RISK FACTORS Smoking COPD 2D DIMENSIONS Left Atrium(2D)3.4 (1.6-4.0cm)IVSd1.0 (0.7-1.1cm) Aortic Root(2D)3.1 (2.0-3.7cm)LVDd4.8 (3.9-5.9cm) LVOT Diameter1.9 (1.8-2.4cm)PWd1.0 (0.7-1.1cm) LVDs2.6 (2.5-4.0cm)FS (%) 44.9 % SV81.0 ml Aortic Valve AoV Peak [place].137.9cm/sAoV VTI31.5cm AO Peak GR.7.6mmHgLVOT Peak [place].96.0cm/s AO Mean GR.4mmHgAVA (VMAX)1.96cm2 AI P 1/2 [id number] Mitral Valve MV E Wzbutybv052.6cm/sMV E Peak Gr.7mmHg MV DECEL [id number] A Ubhxbatq31.1cm/s MV E Mean Gr.3mmHgE/A Ratio1.3 Pulmonary Valve PV Peak Tcqwgtrn33.6cm/s Tricuspid Valve TR P. [id number]/sTR Peak Gr.20mmHg Pulmonary Vein S1 Rjcfelfx77.5cm/sD2 Wpqjttxf15.6cm/s LEFT VENTRICLE The left ventricle is normal size. There is normal left ventricular wall thickness. The left ventricu lar systolic function is normal. Left ventricular ejection fraction of 55 to 60%. There is normal LV segmental wall motion. Transmitral Doppler flow pattern is Grade II-pseudonormal filling dynamics. No left ventricle thrombus noted on this study. There is no ventricular septal defect visualized. There is no left ventricular aneurysm. There is no mass noted in the left ventricle. RIGHT VENTRICLE The right ventricle is normal size. There is normal right ventricular wall thickness. The right ventr icular systolic function is normal. ATRIA The left atrium is mildly dilated. The right atrium size is normal. The interatrial septum is intact with no evidence for an atrial septal defect or patent foramen ovale as noted on 2-D or Doppler imagi ng. AORTIC VALVE Aortic valve not well seen. Doppler and Color Flow revealed mild aortic regurgitation. There is no si gnificant aortic valvular stenosis. There is no aortic valvular vegetation. MITRAL VALVE The mitral valve is normal in structure and function. There is no evidence of mitral valve prolapse. There is no mitral valve stenosis. Doppler and Color-flow revealed mild to moderate mitral regurgitat ion. TRICUSPID VALVE The tricuspid valve is normal in structure and function. Doppler and Color Flow revealed trace tricus pid regurgitation. There is no tricuspid valve prolapse or vegetation. There is no tricuspid valve st enosis. GREAT VESSELS The aortic root is normal in size. The ascending aorta is normal in size. The pulmonary artery is nor mal. The IVC is normal in size and collapses >50% with inspiration. PERICARDIAL EFFUSION There is no pleural effusion. There is no evidence of significant pericardial effusion. Critical Notification Critical Value: No <Conclusion> The left ventricle is normal size. The left ventricular systolic function is normal. Left ventricular ejection fraction of 55 to 60%. There is normal LV segmental wall motion. Doppler and Color Flow revealed mild aortic regurgitation. There is no significant aortic valvular stenosis. Doppler and Color-flow revealed mild to moderate mitral regurgitation. Doppler and Color Flow revealed trace tricuspid regurgitation. Signed by : Antwan Loaiza MD Electronically Approved : 11/30/2020 18:04:51
== END ==
LOC: ECHO 08:48
PROVIDERS: ATTEND Internal Medicine Cardiovascular Disease
DX: I08.0 Rheumatic disorders of both mitral and aortic valves (principal); I48.0 Paroxysmal atrial fibrillation
CPT/HCPCS: 93306

== ENCOUNTER 2020-12-19 06:54 | Outpatient (CLI) | payer MEDICARE ==
[2020-12-19] VITALS (9 sets, daily range): BP systolic 115–146; BP diastolic 45–92
[~2020-12-19] VITALS: Ht 162.6 cm; Wt 63.2 kg
[~2020-12-19 06:54] MED LIST changes: +POTA-121 PO; -POTA20TA4 PO
[2020-12-19 07:47] LABS: BASO % 0 % (0-3); EOS % 0 % (0-3); HEMATOCRIT 33.8 % (36.0-47.0); HEMOGLOBIN 11.1 g/dL (12.0-15.5); LYMPH # 0.6 x10^3/uL (1.0-4.8); LYMPH % 13 % (24-48); MEAN CORPUSCULAR HEMOGLOBIN 26 pg (25-35); MEAN CORPUSCULAR HGB CONC 33 g/dL (31-37); MEAN CORPUSCULAR VOLUME 80 fL (79-100); MONO # 0.1 x10^3/uL (0.0-1.1); MONO % 1 % (0-9); NEUT # 4.1 x10^3/uL (1.8-7.7); NEUT % 86 % (31-73); PLATELET COUNT 415 x10^3/uL (140-400); RED BLOOD COUNT 4.23 x10^6/uL (3.50-5.40); RED CELL DISTRIBUTION WIDTH 16.8 % (11.5-14.5); WHITE BLOOD COUNT 4.8 x10^3/uL (4.0-11.0)
[2020-12-19 07:55] LABS: CALCIUM 9.5 mg/dL (8.5-10.1); CREATININE 1.2 mg/dL (0.6-1.0); GFR 44.2
[2020-12-19 07:58] LABS: PROTHROMBIN TIME PATIENT 13.2 SEC (11.7-14.0)
[2020-12-19 08:00] LABS: ALBUMIN 3.8 g/dL (3.4-5.0); TOTAL BILIRUBIN 0.3 mg/dL (0.2-1.0); TOTAL PROTEIN 7.6 g/dL (6.4-8.2)
[2020-12-19] MEDS ORDERED: diphenhydrAMINE HCL 25 MG CAPSULE PO ONE ×2 (08:06→08:30)
[2020-12-19] MEDS ORDERED: LIDOCAINE WITH 8.4% SOD BICARB 3 ML DISP.SYRIN. ONE (08:34)
[2020-12-19] MEDS ORDERED: IODIXANOL 320 MG/ML 100 ML VIAL. ONE (08:34)
[2020-12-19] MEDS ORDERED: TIOT4MIS3 IH (08:34)
[2020-12-19] MEDS ORDERED: ALEN70TA71 PO (08:34)
[2020-12-19] MEDS ORDERED: HEPARIN for ARTERIAL LINE 1,500 ML ONE (08:34)
[2020-12-19] MEDS ORDERED: HEPARIN for IV BOLUS 10,000 UNIT/10 ML VIAL. ONE (08:35)
[2020-12-19] MEDS ORDERED: fentaNYL PF VIAL 100 MCG/2 ML VIAL ONE ×2 (08:35→09:40)
[2020-12-19] MEDS ORDERED: MIDAZOLAM HCL/PF 2 MG/2 ML VIAL. ONE (08:35)
[2020-12-19] MEDS ORDERED: TUME1CAP PO (08:36)
[2020-12-19] MEDS ORDERED: LACT1CAP37 PO (08:36)
[2020-12-19] MEDS ORDERED: IODIXANOL 320 MG/ML 100 ML VIAL. IART ONE (08:45)
[2020-12-19] MEDS ORDERED: fentaNYL PF VIAL 100 MCG/2 ML VIAL IV ONE (08:45)
[2020-12-19] MEDS ORDERED: LIDOCAINE WITH 8.4% SOD BICARB 3 ML DISP.SYRIN. IJ ONE (08:45)
[2020-12-19] MEDS ORDERED: MIDAZOLAM HCL/PF 2 MG/2 ML VIAL. IV ONE (08:45)
[2020-12-19] MEDS ORDERED: diphenhydrAMINE 50 MG/ML VIAL ONE (08:55)
[2020-12-19] MEDS ORDERED: diphenhydrAMINE 50 MG/ML VIAL IVP ONE (09:30)
[2020-12-19] MEDS ORDERED: IV NORMAL SALINE 1000ML BAG 1,000 ML IV SCH (09:30)
[2020-12-19] MEDS ORDERED: HEPARIN for IV BOLUS 10,000 UNIT/10 ML VIAL. IV ONE (09:45)
[2020-12-19] MEDS ORDERED: IODIXANOL 320 MG/ML 50ML VIAL. ONE (10:16)
[2020-12-19] MEDS ORDERED: IODIXANOL 320 MG/ML 50ML VIAL. IART ONE (10:45)
[2020-12-19] MEDS ORDERED: HYDROcodone/APAP 10/325 1 TAB TABLET PO ONE (11:45)
--- NOTE | 2020-12-19 14:47 | RAD ---
12/19/2020 1. Abdominal aortogram 2. Pelvic angiography 3. Left lower extremity angiography performed 4. Angioplasty and stenting the left common and external iliac arteries 5. Angioplasty of the proximal left superficial femoral artery 6. Placement of a self-expanding stent, right external iliac artery INDICATION: History of severe peripheral vascular disease. History of prior superior mesenteric arter y stent. Bilateral leg pain. Prior CT demonstrating bulky calcifications involving the iliac arteries . Consent: The procedure was explained in its entirety to the patient or the patients designated repres entative by a member of the treatment team, including a discussion of the risks, benefits and commonl y accepted alternatives to the procedure, as well as the expected consequences of no therapy whatsoev er. Discussion of the risks included, but was not limited to, those that are most frequent and thos e that are rare but possibly severe or life-threatening, as well as the possibility of unforeseen com plications. Procedure: A timeout procedure was performed. The the right groin was prepped and draped using maximum sterile t echnique, including the use of: Current guideline approved cutaneous antisepsis, a large sterile shee t to establish a sterile field. 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 Ultrasound fluoroscopic evaluation were used to access the right common femoral artery using direct u ltrasound guidance and micropuncture technique. Reference ultrasound images were saved medical record . A 5 Nepali vascular sheath was placed. A catheter was advanced into the abdominal aorta. Abdominal aortogram was obtained demonstrating tapering of the distal abdominal aorta without high-grade aortic stenosis or aneurysm. SMA stent, though not specifically evaluated. The catheter was advanced into the inferior abdominal aorta and pelvic angiography was performed. The re is high-grade stenosis of the left distal common iliac artery secondary to a prominent focal calci fication. There is also 70% stenosis of the left external iliac artery secondary focal calcification. Catheter was repositioned in the left common femoral artery and angiography performed demonstrating left common femoral artery be patent. The proximal most left SFA left SFA demonstrates a 75%. The cat heter was positioned distal to the SFA stenosis and left lower extremity angiography continued. The d istal left SFA and popliteal artery are widely patent. There is three-vessel runoff on the left. Pelv ic angiography also demonstrates a high-grade stenosis of the right external iliac artery estimated 8 0%. The iliac stenoses were traversed. Following this there is a nonflow limiting dissection involving th e common external iliac artery. Predilatation with a 4 x 40 mm balloon was performed. The areas of st enoses and dissection were treated with placement of a self-expanding stent measuring 7 mm x 100 mm. This resulted in significantly improved morphology and flow through the iliac arteries. The SFA lesi on was treated with balloon angioplasty to 4 mm significantly improved morphology and flow. The right external iliac lesion was treated with placement of a self-expanding stent measuring 6 mm x 40 mm.. This resulted in significantly improved morphology and flow. The sheath was removed as a minx device was deployed to achieve hemostasis. Sterile dressings were applied. No immediate complications were i dentified. Total fluoroscopy time: 22 minutes Dose area product 488 Yates centimeter squared Sedation: The procedure was performed under conscious sedation including continuous cardiopulmonary m onitoring via a dedicated sedation nurse. [id number] sedation time: 124 minutes IMPRESSION: 1. High-grade stenoses of the left common and external iliac artery treated with angioplasty and self expanding stent placement 2. High-grade stenosis of the proximal left SFA treated with balloon angioplasty 3. High-grade stenosis of the right external iliac artery treated with self-expanding stent placement Electronically signed by: Rolf Valverde MD (12/19/2020 2:44 PM) [id number]
--- NOTE | 2020-12-19 14:50 | NUR ---
Discharge Note: JERRELL ROTH Discharge instructions and discharge home medications reviewed with Patient and daughter (Reba) and a copy given. All questions have been answered and understanding verbalized. The following instructions and handouts were given: Groin Site care and moderate sedation. Discontinued lines and drains: Left FA IV dc'd, tip intact, and bandage applied Patient discharged to home with daughter via personal vehicle.
--- NOTE | 2020-12-26 08:50 | PDOC1 ---
History and Physical Date of Procedure Date of Admission 12.19.20 Procedure Procedure Aortogram with runnoff, RLE Indication Indication Claudication History of Present Illness Reason for Visit Same Past Medical History Past Medical History PVD ASVD CHronic mesenteric ischemia sp SMA stent Prior Smoker Cardiovascular: AFIB Pulmonary: COPD CENTRAL NERVOUS SYSTEM: Periperal neuropathy Psych: Anxiety Musculoskeletal: Osteoarthritis Current Medications Current Medications Current Medications Diphenhydramine HCl (Benadryl) 25 mg STK-MED ONCE PO ; Start 12/19/20 at 08:06; Stop 12/19/20 at 08:07; Status DC Diphenhydramine HCl (Benadryl) 50 mg 1X ONCE PO Last administered on 12/19/20at 08:30; Start 12/19/20 at 08:30; Stop 12/19/20 at 08:33; Status DC Iodixanol (Visipaque 320) 100 ml STK-MED ONCE .ROUTE ; Start 12/19/20 at 08:34; Stop 12/19/20 at 08:34; Status DC Heparin Sodium/ Sodium Chloride 1,500 ml @ As Directed STK-MED ONCE .ROUTE ; Start 12/19/20 at 08:34; Stop 12/19/20 at 08:34; Status DC Lidocaine HCl (Buffered Lidocaine 1%) 3 ml STK-MED ONCE .ROUTE ; Start 12/19/20 at 08:34; Stop 12/19/20 at 08:34; Status DC Midazolam HCl (Versed) 2 mg STK-MED ONCE .ROUTE ; Start 12/19/20 at 08:35; Stop 12/19/20 at 08:36; Status DC Fentanyl Citrate (Fentanyl 2ml Vial) 100 mcg STK-MED ONCE .ROUTE ; Start 12/19/20 at 08:35; Stop 12/19/20 at 08:36; Status DC Heparin Sodium (Porcine) (Heparin Sodium) 10,000 unit STK-MED ONCE .ROUTE ; Start 12/19/20 at 08:35; Stop 12/19/20 at 08:36; Status DC Heparin Sodium/ Sodium Chloride (HEPARIN for ARTERIAL LINE FLUSH) 1,000 unit 1X ONCE IART Last administered on 12/19/20at 08:45; Start 12/19/20 at 08:45; Stop 12/19/20 at 08:50; Status DC Heparin Sodium/ Sodium Chloride (HEPARIN for ARTERIAL LINE FLUSH) 1,000 unit 1X ONCE IART Last administered on 12/19/20at 08:45; Start 12/19/20 at 08:45; Stop 12/19/20 at 08:50; Status DC Lidocaine HCl (Buffered Lidocaine 1%) 3 ml 1X ONCE IJ Last administered on at 09:06; Start 12/19/20 at 08:45; Stop 12/19/20 at 08:50; Status DC Midazolam HCl (Versed) 2 mg 1X ONCE IV Last administered on 12/19/20at 08:58; Start 12/19/20 at 08:45; Stop 12/19/20 at 08:50; Status DC Fentanyl Citrate (Fentanyl 2ml Vial) 100 mcg 1X ONCE IV Last administered on 12/19/20at 08:58; Start 12/19/20 at 08:45; Stop 12/19/20 at 08:50; Status DC Iodixanol (Visipaque 320) 100 ml 1X ONCE IART Last administered on 12/19/20at 10:46; Start 12/19/20 at 08:45; Stop 12/19/20 at 08:50; Status DC Diphenhydramine HCl (Benadryl) 50 mg STK-MED ONCE .ROUTE ; Start 12/19/20 at 08:55; Stop 12/19/20 at 08:55; Status DC Diphenhydramine HCl (Benadryl) 50 mg 1X ONCE IVP Last administered on 12/19/20at 09:30; Start 12/19/20 at 09:30; Stop 12/19/20 at 09:31; Status DC Heparin Sodium (Porcine) (Heparin Sodium) 4,000 unit 1X ONCE IV Last administered on 12/19/20at 09:30; Start 12/19/20 at 09:45; Stop 12/19/20 at 09:46; Status DC Fentanyl Citrate (Fentanyl 2ml Vial) 100 mcg STK-MED ONCE .ROUTE ; Start at 09:40; Stop 12/19/20 at 09:41; Status DC Iodixanol (Visipaque 320) 50 ml STK-MED ONCE .ROUTE ; Start 12/19/20 at 10:16; Stop 12/19/20 at 10:16; Status DC Sodium Chloride 1,000 ml @ 100 mls/hr Q10H IV Last administered on 12/19/20at 09:30; Start 12/19/20 at 09:30; Stop 12/19/20 at 14:55; Status DC Iodixanol (Visipaque 320) 50 ml 1X ONCE IART Last administered on 12/19/20at 10:45; Start 12/19/20 at 10:45; Stop 12/19/20 at 10:46; Status DC Acetaminophen/ Hydrocodone Bitart (Lortab 10/325) 1 tab 1X ONCE PO Last administered on 12/19/20at 11:45; Start 12/19/20 at 11:45; Stop 12/19/20 at 11:46; Status DC Active Scripts Active Reported Probiotic (Lactobacillus Combo No.10) 1 Each Capsule 1 Tab PO DAILY 30 Days Candicidal Capsule (Tumeric/Ging/Gillham/Oreg/Capryl) 1 Each Capsule 1 Each PO BID Stiolto Respimat Inhal [place] (Tiotropium Br/Olodaterol HCl) 4 Gm Mist.inhal 4 Gm IH QID Alendronate Sodium 70 Mg Tablet 1 Tab PO WEEKLY Pantoprazole Sodium 40 Mg Tablet.dr 40 Mg PO DAILY Flovent 110MCG Hfa (Fluticasone Propionate) 12 Gm Aer.w.adap 2 Inh PO BID Eliquis (Apixaban) 5 Mg Tablet 5 Mg PO BID Multaq (Dronedarone Hcl) 400 Mg Tablet 400 Mg PO BID Atenolol 50 Mg Tablet 50 Mg PO DAILY Diltiazem 24HR Cd (Diltiazem Hcl) 120 Mg Cap.er.24h 120 Mg PO DAILY Allergies Allergies: Coded Allergies: Iodine and Iodide Containing Produc (Verified Allergy, Severe, Shortness of Air, 10/03/17) iodine (Verified Allergy, Severe, 10/03/17) Physical Exam Lungs: Other (Mild expiratory wheeze) Heart: Regular rate Neuro: Normal speech, Normal tone Psych/Mental Status: Mental status NL Vascular Bilateral palpable DP pulse. PT dopplerable with biphasic Assessment Assessment RLE PAIN, POSSIBLE VASCULAR Plan Plan AORTOGRAM WITH RUNOFF, RLE WALTER GUILLEN MD Dec 26, 2020 08:50
== END 2020-12-19 14:55 | disposition home or self-care (01) ==
LOC: INTRAD 06:54 → EDSTATUS 07:00 → INTRAD 14:55
PROVIDERS: ATTEND Family Medicine
DX: I70.213 Atherosclerosis of native arteries of extremities with intermittent claudication, bilateral legs (principal); I10 Essential (primary) hypertension; K21.9 Gastro-esophageal reflux disease without esophagitis; J44.9 Chronic obstructive pulmonary disease, unspecified; F41.9 Anxiety disorder, unspecified; F32.9 Major depressive disorder, single episode, unspecified; M19.90 Unspecified osteoarthritis, unspecified site; Z86.73 Personal history of transient ischemic attack (TIA), and cerebral infarction without residual deficits; F17.210 Nicotine dependence, cigarettes, uncomplicated; Z79.899 Other long term (current) drug therapy; Z98.890 Other specified postprocedural states
CPT/HCPCS: 36415; 37221; 37223; 37224; 75625; 75710; 76937; 80053; 85025; 85610; 99152; 99153; C1725; C1760; C1769; C1876; C1892; C1894; J1200; J1644; J2250; J3010; J3490; J7030; Q0163; Q9967

== ENCOUNTER → 2021-01-03 | Outpatient (CLI) | payer MEDICARE ==
[2020-12-19 13:15] VITALS: BP 115/69
[~2021-01-03] MED LIST changes: +LACT1CAP37 PO; +TIOT4MIS3 IH; +TUME1CAP PO
--- NOTE | 2021-01-03 13:55 | RAD ---
EXAM: Left lower extremity venous Doppler sonogram. HISTORY: Pain and swelling. TECHNIQUE: Yates scale and color Doppler sonographic evaluation of the left lower extremity veins with spectral waveform analysis was performed. FINDINGS: There is normal color flow, normal compressibility and there are normal spectral waveforms in the common femoral, superficial femoral, popliteal, posterior tibial and greater saphenous veins. IMPRESSION: No Doppler evidence of lower extremity deep venous thrombosis. Electronically signed by: Katey Soriano MD (01/03/2021 1:53 PM) [id number]
--- NOTE | 2021-01-03 14:02 | RAD ---
EXAM: Left lower extremity arterial Doppler sonogram. HISTORY: Peripheral artery disease. Pain. TECHNIQUE: Yates scale and color Doppler sonographic imaging of the left lower external arteries with spectral analysis was performed. COMPARISON: None. FINDINGS: There are abnormal monophasic waveforms and increased peak systolic velocities within the l eft external iliac and common femoral arteries. The peak systolic velocities within these vessels mackenzie sure 362 cm/s and 304 cm/s. There is also an elevated peak systolic velocity within the mid left supe rficial femoral artery, measuring 283 cm/s. There are biphasic waveforms and normal peak systolic crystal ocities throughout the remainder of the lower extremity arteries. No arterial occlusion is seen. IMPRESSION: 1. Elevated peak systolic velocities and abnormal waveforms within the left external iliac and common femoral arteries, consistent with hemodynamically significant stenosis. There is also suspected hemo dynamically significant stenosis involving the mid left superficial femoral artery. 2. No evidence of arterial occlusion. Electronically signed by: Katey Soriano MD (01/03/2021 2:00 PM) [id number]
== END ==
LOC: US 13:07
PROVIDERS: ATTEND Surgery
DX: R60.0 Localized edema (principal); M79.605 Pain in left leg
CPT/HCPCS: 93926; 93971

== ENCOUNTER → 2021-01-19 | Outpatient (CLI) | payer MEDICARE ==
[2020-12-19 13:15] VITALS: BP 115/69
--- NOTE | 2021-01-19 14:41 | RAD ---
MR#: [id number] Date of Study: 01/19/2021 Ordering Physician: ANNA GARDNER, Referring Physician: ANNA GARDNER, Tech: Arnie Root MBA, RDMS, RVT, RDCS, RTR APPROVED REPORT Patient Location : OUT-PATIENT Indications Lower Extremity Pain : VENOUS INSUFFICIENCY Findings Limited grayscale images of the bilateral saphenofemoral junctions are grossly unremarkable. The right great saphenous vein measures 3.5 mm and the left great saphenous vein measures 4.7 mm The bilateral greater and lesser saphenous veins did not show any evidence of reflux Critical Notification Critical Value: No <Conclusion> 1. Negative for reflux in the bilateral greater and lesser saphenous veins Signed by : Ankur Busby, Electronically Approved : 01/19/2021 14:41:11
== END ==
LOC: US 08:59
PROVIDERS: ATTEND Internal Medicine Cardiovascular Disease
DX: I87.2 Venous insufficiency (chronic) (peripheral) (principal)
CPT/HCPCS: 93970